=== PATIENT | male | born 1950 | race Caucasian/White ===

== ENCOUNTER → 2021-12-08 14:59 | Outpatient (BNVA) | payer BC, SELFPAY | PROVIDERS: PCP Internal Medicine Endocrinology, Diabetes & Metabolism; Visit Provider Hospitalist | DX: J45.909 Unspecified asthma, uncomplicated (principal); J44.9 Chronic obstructive pulmonary disease, unspecified; J98.6 Disorders of diaphragm; G47.33 Obstructive sleep apnea (adult) (pediatric); I48.91 Unspecified atrial fibrillation; R06.00 Dyspnea, unspecified; Z79.899 Other long term (current) drug therapy; Z87.891 Personal history of nicotine dependence | CPT/HCPCS: 94618 ==

== ENCOUNTER 2021-12-29 12:55 | Outpatient (REF) | payer BC, SELFPAY ==
--- NOTE | 2021-12-29 16:06 | PFT_ITS ---
Forced vital capacity 59%, FEV1 38%, FEV1/FVC ratio is 48. [id number] 15% and MVV is 39%. Post bronchodilator therapy, there is a minimal improvement in FEV1 and [id number]. Total lung capacity 64%. Residual volume 73%. Diffusion capacity 49% CONCLUSION: Severe obstructive airway disorder. There may be mild to moderate degree of restrictive disorder. Minimal improvement after bronchodilator therapy is noted. Clinical correlation recommended. MD RADHA Cobb/MODL / [id number]
== END 2021-12-29 12:56 | disposition home or self-care (01) ==
LOC: HO.RESP 12:55
PROVIDERS: PCP Internal Medicine Endocrinology, Diabetes & Metabolism; Visit Provider Hospitalist
DX: J44.9 Chronic obstructive pulmonary disease, unspecified (principal); R06.00 Dyspnea, unspecified
CPT/HCPCS: 94060; 94727; 94729

== ENCOUNTER → 2022-01-19 09:56 | Outpatient (REF) | payer BC, SELFPAY | LOC: HO.SL 09:56 | PROVIDERS: PCP Internal Medicine Endocrinology, Diabetes & Metabolism; Visit Provider Hospitalist | DX: G47.33 Obstructive sleep apnea (adult) (pediatric) (principal) | CPT/HCPCS: 95806 ==

== ENCOUNTER → 2022-05-17 14:19 | Outpatient (BNVA) | payer BC, SELFPAY | PROVIDERS: PCP Internal Medicine Endocrinology, Diabetes & Metabolism; Visit Provider Hospitalist | DX: Z13.89 Encounter for screening for other disorder (principal) ==

== ENCOUNTER → 2022-08-17 14:26 | Outpatient (BNVA) | payer BC, SELFPAY | PROVIDERS: PCP Internal Medicine Endocrinology, Diabetes & Metabolism; Visit Provider Hospitalist | DX: Z13.89 Encounter for screening for other disorder (principal) ==

== ENCOUNTER 2022-12-21 14:39 | Outpatient (AMB) | payer BC, SELFPAY ==
[2022-12-21 14:51] VITALS: PULSE 92; O2SAT 96; BMI 31.5
--- NOTE | 2022-12-21 14:51 | A.OFFVIS_ITS ---
Intake Vital Signs 12/21/22 14:51 Height 6 ft 1 in Weight 239 lb BMI 31.5 Pulse 92 Pulse Source Pulse Oximeter Pulse Oximetry (%) 96 Oxygen Delivery Method Room Air Intake Visit Reasons: COPD School Library Media Specialist Required: No Allergies No Known Allergies Allergy (Verified 12/21/22 14:52) HPI HPI Comments History of Present Illness0 Details The patient is a 72-year-old gentleman with known history of COPD in addition to obstructive sleep apnea and diaphragmatic paresis. apparently the pa ahsan has been having worsening shortness of breath. He recently went to [place] and while he was there he was developing severe dyspnea. Patient could barely walk 1 block. He does have a rescue inhaler that he uses with partial improvement of his symptoms. He does not have any maintenance inhalers at this time. He does state that he did follow-up with thoracic surgery. The did evaluate his elevated hemidiaphragm and repeated this sniff study. Indeed he did have some paradoxical movement of the left hemidiaphragm. it was decided not to pursue plication of the diaphragm after the patient understood the risk and benefits of the procedure. The patient states that he has not been using the CPAP. He had been using before but then he stopped using it because he can not tolerate the pressures. At this time he is no longer getting supplies. Will go ahead and have him bring his machine to see if we can adjust the machine. The patient understands that he needs to uses in order to try to provide positive pressure to his lung to try to inflated in view of the nonfunctional diaphragm in addition to the fact that he has underlying cardiac arrhythmias. We did go for 6 minutes walk test the patient was very short of breath with dyspnea score of 8/10. During the ambulation is pulse ox maintain around 96% although the heart rate was already elevated in the 130s. The patient quickly became short of breath and his heart rate increased above 115. I did call his credit and loan collections supervisor and spoke to the credit and loan collections supervisor covering. the plan is for the patient to increase his metoprolol from 25-50 mg because his blood pressure is stable. also, he will have an appointment with Cardiology where he will have a Holter monitor and further adjust his medications accordingly. 12/31/2021 the patient is here for a pulmonary follow-up visit. He seems to be tolerating the higher dose metoprolol. Continues to have significant dyspnea with minimal activity. Moderate severity. The Spiriva inhaler has been helping. Although he still has episodes with shortness of breath. The patient is wondering about a short-acting beta agonist. At this point with the atrial fibrillation and rapid ventricular response I will send Xopenex. We may have to do a prior approval. The patient continues to have significant daytime drowsiness. His Offerman score is elevated 12/24. Needs to have a sleep study in order to get an back acquainted to using his CPAP. The patient has been diagnosed with sleep apnea in the past. The patient understands that treating his underlying sleep apnea will be important in the treatment for the cardiovascular disease. 05/17/2022 the patient is here for a pulmonary follow-up visit. The patient is still struggling with CPAP. Continues to have daytime drowsiness. Even while trying to use some. his Offerman score is still elevated 12/24. We did review his last sleep study Still demonstrating severe sleep apnea and significant hypoxia. The patient needs to be able to tolerate his CPAP due to the significant adverse effects. Specially with his cardiac history. He has been using the nasal pillows. He does complain of a dry mouth. I did provide him with an F 30 mask with the hope that he can tolerated better. He did okay although it did start leaking at higher pressure. Therefore he will have to try to adjusted at home. In any case will go ahead and request for him to get [facility] in order for him to get supplies. I do believe that he needs to be set up with the [facility] with them to see which is the best mask for him to use with CPAP. His current settings are 6-8. Will continue on that setting while he tries the new mask he probably would need higher pressure if able. He does have facial hair which also makes it difficult to get a good seal. However, at this point the patient would like to stay on the Spiriva. In addition to that we talked about the importance of pulmonary rehab. The patient understands that the more deconditioning gets the more short of breath he is going to become. He is not interested in in person rehab. I did give him information about underlying pulmonary rehab that he can look into. 08/17/2022 The patient is here for a pulmonary follow up visit. The patient also complains of dyspnea on exertion. Moderate in severity. He has been on Spiriva. We did look at his previous breathing studies and he does have severe COPD with moderate to severe diffusion impairment. The patient will benefit from optimizing his respiratory therapy. We did talk about some options. The patient is willing to try Trelegy at this time. The patient is still struggling with CPAP. Continues to have daytime drowsiness. Even while trying to use some. his Offerman score is still elevated 04/10. We did review his last sleep study Still demonstrating severe sleep apnea and significant hypoxia. The patient needs to jacque his CPAP. He does have a hard time sleeping. He will get a wedge pillow and will try to use his cpap machine. If he needs a sleep aid, he will call the office. 12/21/2022 patient is here for pulmonary follow-up visit. She is still struggling with shortness of breath. Moderate severity. Was prescribed Trelegy inhaler but he only used it a few days and then he stopped it. He went back to using Spiriva he is not sure if the inhalers are going to help because in his view his breathing is primarily due to diaphragmatic paralysis. I did review his PFTs. Explained to him that he does have severe COPD in addition to the restrictive process. The patient did have a good response to bronchodilators and will work commend him starting the Trelegy in using it regularly. In addition to that the patient has not been very active. We talked about the importance of staying active and exercising and building up respiratory muscle capacity. Therefore we will repeat his PFTs and refer him back to pulmonary rehabilitation. He was referred before but he only went to the introductory class and then did not follow through. At this point the patient understands that in view of his worsening condition he needs to start participating. He is also trying to lose weight. He started some lifestyle changes also at this time. Also, the patient is not using his CPAP regularly. We did talk about the importance of using the CPAP specially with his diaphragm. Also with underlying obstructive sleep apnea. He will start using it more regularly. [facility] Medical History (Updated 12/09/21 @ 00:00 by Addiosn Jesus MD) COPD (chronic obstructive pulmonary disease) Diaphragmatic paresis Dyspnea ALLY (obstructive sleep apnea) Social History (Updated 12/31/21 @ 14:09 by MARLENE Jauregui) Patient Tobacco Use Status: Former Tobacco user Tobacco use type: Cigarette Years Smoked: 10 years Review of Systems Const Reports daytime sleepiness, Reports difficulty sleeping, Reports fatigue, Denies fever(s) and Reports stops breathing during sleep Eyes Denies change in vision ENT Denies change in voice Card Reports dyspnea on exertion and Reports orthopnea Resp Reports cough, Denies hemoptysis and Reports dyspnea on exertion GI Reports no additional complaints Musc Reports no additional complaints Skin/Breast Denies rash Neuro Reports no additional complaints Endo Reports fatigue Physical Exam Vital Signs: Last Vital Signs Pulse 92 12/21/22 14:51 Pulse Ox 96 12/21/22 14:51 Oxygen Delivery Method Room Air 12/21/22 14:51 BMI result Body Mass Index 31.5 Const General: comfortable HEENT Head: Yes normal to inspection Eyes General: appearance normal, both eyes and all related structures Neck Neck: Yes supple Chest Chest palpation & inspection: normal inspection of the chest Resp Effort & Inspection: decreased respiratory effort Auscultation: no rales, no rhonchi, no wheezes and diminished lung sounds Cardio Rate: tachycardic Rhythm: regular rhythm Heart sounds: S1 normal heart sound present and S2 normal heart sound present GI Inspection: Yes normal to inspection Skin General skin exam: no rashes or lesions noted Extrem General: Yes no clubbing, cyanosis or edema Assessment & Plan Assessment & Plan (1) COPD (chronic obstructive pulmonary disease): Code(s): J44.9 - Chronic obstructive pulmonary disease, unspecified (2) Diaphragmatic paresis: Code(s): J98.6 - Disorders of diaphragm (3) ALLY (obstructive sleep apnea): Code(s): G47.33 - Obstructive sleep apnea (adult) (pediatric) (4) Atrial fibrillation with RVR: Code(s): I48.91 - Unspecified atrial fibrillation (5) Dyspnea: Code(s): R06.00 - Dyspnea, unspecified Plan stop Spiriva restart Trellegy 100 wedge pillow restart CPAP continue xopenex as needed (can not tolerate albuterol due to afib and high HR) PFTs in person pulmonary rehab follow-up 6 months Orders: Orders PFT pulmonary function test Today J44.9 - Chronic obstructive pulmonary diseas e, unspecified, J98.6 - Disorders of diaphragm, R06.00 - Dyspnea, unspecified Pulmonary Rehab Today J44.9 - Chronic obstructive pulmonary disease, unspecified, J98.6 - Disorders of diaphragm, R06.00 - Dyspnea, unspecified Coding Level of Care Code Est Pt Level 4 (40045) Diagnoses COPD (chronic obstructive pulmonary disease) J44.9 Diaphragmatic paresis J98.6 ALLY (obstructive sleep apnea) G47.33 Atrial fibrillation with RVR I48.91 Dyspnea R06.00 Time Spent (min) 18
== END 2022-12-21 15:32 | disposition home or self-care (01) ==
PROVIDERS: PCP Internal Medicine Endocrinology, Diabetes & Metabolism; Visit Provider Hospitalist
DX: J44.9 Chronic obstructive pulmonary disease, unspecified (principal); J98.6 Disorders of diaphragm; G47.33 Obstructive sleep apnea (adult) (pediatric); I48.91 Unspecified atrial fibrillation; R06.00 Dyspnea, unspecified
CPT/HCPCS: 99214

== ENCOUNTER → 2022-12-21 14:39 | Outpatient (BNVA) | payer BC, SELFPAY | PROVIDERS: PCP Internal Medicine Endocrinology, Diabetes & Metabolism; Visit Provider Hospitalist | DX: J44.9 Chronic obstructive pulmonary disease, unspecified (principal) ==

== ENCOUNTER 2023-02-07 13:44 | Outpatient (REF) | payer BC, SELFPAY ==
--- NOTE | 2023-02-07 15:33 | PFT_ITS ---
INDICATION: COPD. SPIROMETRY: FEV1 to FVC of 48% with an FEV1 of 1.42 L, which is 113% predicted and an FVC of 2.99 L, which is 101% predicted. There was a significant response to bronchodilators noted. The maximum voluntary ventilation 122% predicted. LUNG VOLUMES: Total lung capacity 60% predicted with an expiratory reserve volume 80% predicted. DIFFUSION CAPACITY: DLCO of 61% predicted. It does correct to 98% when correcting for the alveolar volume. COMPARISONS: None. INTERPRETATION: There is an obstructive ventilatory defect, consistent with mild COPD. There is a significant response to bronchodilators noted. Severe decrease in the maximum voluntary ventilation, secondary to likely deconditioning. Although cannot rule out neuromuscular conditions. The patient also has a restrictive ventilatory defect, consistent with moderate restrictive lung disease impart due to an elevated BMI, although parenchymal lung conditions and/or neuromuscular conditions cannot be ruled out. The patient also has a mild diffusion impairment. It does correct to normal when correcting for the alveolar volume. Clinical correlation warranted. MD JOHN Arriaza/LISS / [id number]
== END 2023-02-07 13:45 | disposition home or self-care (01) ==
LOC: HO.RESP 13:44
PROVIDERS: PCP Internal Medicine Endocrinology, Diabetes & Metabolism; Visit Provider Hospitalist
DX: J44.9 Chronic obstructive pulmonary disease, unspecified (principal); J98.6 Disorders of diaphragm; R06.00 Dyspnea, unspecified
CPT/HCPCS: 94010; 94727; 94729

== ENCOUNTER → 2023-02-07 15:33 | Outpatient (BNV) | payer BC, SELFPAY | PROVIDERS: PCP Internal Medicine Endocrinology, Diabetes & Metabolism; Visit Provider Hospitalist | DX: J44.9 Chronic obstructive pulmonary disease, unspecified (principal) | CPT/HCPCS: 94060; 94727; 94729 ==

== ENCOUNTER 2023-02-08 | Outpatient (REF) | payer BC, SELFPAY ==
--- NOTE | ~2023-02-08 | XR_ITS ---
EXAMINATION: XR CHEST CLINICAL INFORMATION: Dyspnea COMPARISON: None available. TECHNIQUE: 2 views of the chest were obtained. FINDINGS: Asymmetric elevation of the left lung base with subjacent air-filled loops of bowel, obscuring cardiac border. Patient rotation further limits evaluation of the cardiomediastinal silhouette. Bilateral costophrenic angle blunting may represent small bilateral pleural effusions or pleural thickening. There is no gross pneumothorax. Degenerative changes in the thoracic spine. Bibasilar streaky opacities may represent atelectasis/scar and/or pneumonia. XR/XR chest 2V IMPRESSION: Asymmetric elevation of the left lung base with subjacent air-filled loops of bowel, obscuring cardiac border. Bilateral costophrenic angle blunting may represent small bilateral pleural effusions or pleural thickening. Bibasilar streaky opacities may represent atelectasis/scar and/or pneumonia. Direct correlation with prior images is recommended and if prior images are provided, an addendum will be dictated. In the absence of prior images, CT scan or MRI should be considered for further evaluation. This study was presented today 02/09/2023 at 6:54 AM for interpretation. PSA staff will provide results to referring provider at this time.
== END 2023-02-08 13:27 | disposition home or self-care (01) ==
LOC: HO.XRAY
PROVIDERS: PCP Internal Medicine Endocrinology, Diabetes & Metabolism; Referring Provider Thoracic Surgery (Cardiothoracic Vascular Surgery); Visit Provider Hospitalist
DX: J44.9 Chronic obstructive pulmonary disease, unspecified (principal); R06.00 Dyspnea, unspecified
CPT/HCPCS: 71046

== ENCOUNTER 2023-03-22 13:30 | Outpatient (RCR) | payer BC, SELFPAY ==
[2023-01-12 13:15] VITALS: PULSE 91
== END 2023-06-17 07:18 | disposition home or self-care (01) ==
LOC: HO.PR 13:30
PROVIDERS: PCP Internal Medicine Endocrinology, Diabetes & Metabolism; Visit Provider Hospitalist
DX: J44.9 Chronic obstructive pulmonary disease, unspecified (principal); J98.6 Disorders of diaphragm; R06.00 Dyspnea, unspecified
CPT/HCPCS: 94625; 94761; 99215

== ENCOUNTER 2023-04-21 14:46 | Outpatient (AMB) | payer BC, SELFPAY ==
[2023-04-21 14:56] VITALS: PULSE 89; O2SAT 94; BMI 30.9
--- NOTE | 2023-04-21 14:56 | MHC.OFFVIS ---
Intake Vital Signs 04/21/23 14:56 Height 6 ft 1 in Weight 234 lb BMI 30.9 Pulse 89 Pulse Source Pulse Oximeter Pulse Oximetry (%) 94 Oxygen Delivery Method Room Air Intake Visit Reasons: COPD Blade Aligner Required: No Allergies No Known Allergies Allergy (Verified 04/21/23 14:57) HPI HPI Comments History of Present Illness Details The patient is a 72-year-old gentleman with known history of COPD in addition to obstructive sleep apnea and diaphragmatic paresis. apparently the patient has been having worsening shortness of breath. He recently went to [place] and while he was there he was developing severe dyspnea. Patient could barely walk 1 block. He does have a rescue inhaler that he uses with partial improvement of his symptoms. He does not have any maintenance inhalers at this time. He does state that he did follow-up with thoracic surgery. The did evaluate his elevated hemidiaphragm and repeated this sniff study. Indeed he did have some paradoxical movement of the left hemidiaphragm. it was decided not to pursue plication of the diaphragm after the patient understood the risk and benefits of the procedure. The patient states that he has not been using the CPAP. He had been using before but then he stopped using it because he can not tolerate the pressures. At this time he is no longer getting supplies. Will go ahead and have him bring his machine to see if we can adjust the machine. The patient understands that he needs to uses in order to try to provide positive pressure to his lung to try to inflated in view of the nonfunctional diaphragm in addition to the fact that he has underlying cardiac arrhythmias. We did go for 6 minutes walk test the patient was very short of breath with dyspnea score of 8/10. During the ambulation is pulse ox maintain around 96% although the heart rate was already elevated in the 130s. The patient quickly became short of breath and his heart rate increased above 115. I did call his sales representative womens health and spoke to the sales representative womens health covering. the plan is for the patient to increase his metoprolol from 25-50 mg because his blood pressure is stable. also, he will have an appointment with Cardiology where he will have a Holter monitor and further adjust his medications accordingly. 12/31/2021 the patient is here for a pulmonary follow-up visit. He seems to be tolerating the higher dose metoprolol. Continues to have significant dyspnea with minimal activity. Moderate severity. The Spiriva inhaler has been helping. Although he still has episodes with shortness of breath. The patient is wondering about a short-acting beta agonist. At this point with the atrial fibrillation and rapid ventricular response I will send Xopenex. We may have to do a prior approval. The patient continues to have significant daytime drowsiness. His Clermont score is elevated 12/24. Needs to have a sleep study in order to get an back acquainted to using his CPAP. The patient has been diagnosed with sleep apnea in the past. The patient understands that treating his underlying sleep apnea will be important in the treatment for the cardiovascular disease. 05/17/2022 the patient is here for a pulmonary follow-up visit. The patient is still struggling with CPAP. Continues to have daytime drowsiness. Even while trying to use some. his Clermont score is still elevated 12/24. We did review his last sleep study Still demonstrating severe sleep apnea and significant hypoxia. The patient needs to be able to tolerate his CPAP due to the significant adverse effects. Specially with his cardiac history. He has been using the nasal pillows. He does complain of a dry mouth. I did provide him with an F 30 mask with the hope that he can tolerated better. He did okay although it did start leaking at higher pressure. Therefore he will have to try to adjusted at home. In any case will go ahead and request for him to get restart lives with the [employer] in order for him to get supplies. I do believe that he needs to be set up with the [facility] with them to see which is the best mask for him to use with CPAP. His current settings are 6-8. Will continue on that setting while he tries the new mask he probably would need higher pressure if able. He does have facial hair which also makes it difficult to get a good seal. However, at this point the patient would like to stay on the Spiriva. In addition to that we talked about the importance of pulmonary rehab. The patient understands that the more deconditioning gets the more short of breath he is going to become. He is not interested in in person rehab. I did give him information about underlying pulmonary rehab that he can look into. 08/17/2022 The patient is here for a pulmonary follow up visit. The patient also complains of dyspnea on exertion. Moderate in severity. He has been on Spiriva. We did look at his previous breathing studies and he does have severe COPD with moderate to severe diffusion impairment. The patient will benefit from optimizing his respiratory therapy. We did talk about some options. The patient is willing to try Trelegy at this time. The patient is still struggling with CPAP. Continues to have daytime drowsiness. Even while trying to use some. his Clermont score is still elevated 04/10. We did review his last sleep study Still demonstrating severe sleep apnea and significant hypoxia. The patient needs to jacque his CPAP. He does have a hard time sleeping. He will get a wedge pillow and will try to use his cpap machine. If he needs a sleep aid, he will call the office. 12/21/2022 patient is here for pulmonary follow-up visit. She is still struggling with shortness of breath. Moderate severity. Was prescribed Trelegy inhaler but he only used it a few days and then he stopped it. He went back to using Spiriva he is not sure if the inhalers are going to help because in his view his breathing is primarily due to diaphragmatic paralysis. I did review his PFTs. Explained to him that he does have severe COPD in addition to the restrictive process. The patient did have a good response to bronchodilators and will work commend him starting the Trelegy in using it regularly. In addition to that the patient has not been very active. We talked about the importance of staying active and exercising and building up respiratory muscle capacity. Therefore we will repeat his PFTs and refer him back to pulmonary rehabilitation. He was referred before but he only went to the introductory class and then did not follow through. At this point the patient understands that in view of his worsening condition he needs to start participating. He is also trying to lose weight. He started some lifestyle changes also at this time. Also, the patient is not using his CPAP regularly. We did talk about the importance of using the CPAP specially with his diaphragm. Also with underlying obstructive sleep apnea. He will start using it more regularly. 04/21/2023 the patient is here for a pulmonary follow-up visit. The patient overall has been doing well. He recently had COVID-19. Did not really affect his breathing. However he stopped using his Trelegy for a an unknown reason. He has not gone back to using it. He understands that he does have significant obstruction. We did review his PFTs. He does have severe COPD. the patient also has an elevated diaphragm resulting in worsening respiratory symptoms. He is does not daytime drowsiness. In view of his COPD will go ahead and perform an overnight oximetry to see if he has any nocturnal hypoxia. The patient is participating the pulmonary rehabilitation. He is finding this helpful. Otherwise patient is without any other complaints. Will plan to follow-up sometime in the fall of 2023. if any new issues arise the patient is to call the office for an earlier assessment. [facility] Medical History (Updated 04/21/23 @ 21:42 by Addison Jesus MD) Dyspnea ALLY (obstructive sleep apnea) Diaphragmatic paresis COPD (chronic obstructive pulmonary disease) Social History (Updated 12/31/21 @ 14:09 by MARLENE Jauregui) Household Members: Spouse Household Members Other:: Patient Tobacco Use Status: Former Tobacco user Tobacco use type: Cigarette Years Smoked: 9 Second Hand Smoke Exposure: Yes (as a child) Review of Systems Const Reports daytime sleepiness, Reports difficulty sleeping, Reports fatigue and Denies fever(s) Eyes Denies change in vision ENT Denies change in voice Card Reports dyspnea on exertion and Reports orthopnea Resp Reports cough, Denies hemoptysis and Reports dyspnea on exertion GI Reports no additional complaints Musc Reports no additional complaints Skin/Breast Denies rash Neuro Reports no additional complaints Endo Reports fatigue Physical Exam Vital Signs: Last Vital Signs Pulse 89 04/21/23 14:56 Pulse Ox 94 04/21/23 14:56 Oxygen Delivery Method Room Air 04/21/23 14:56 BMI result Body Mass Index 30.9 Const General: comfortable HEENT Head: Yes normal to inspection Eyes General: appearance normal, both eyes and all related structures Neck Neck: Yes supple Chest Chest palpation & inspection: normal inspection of the chest Resp Effort & Inspection: normal respiratory effort Auscultation: no rales, no rhonchi, no wheezes and diminished lung sounds Cardio Rate: tachycardic Rhythm: regular rhythm Heart sounds: S1 normal heart sound present and S2 normal heart sound present GI Inspection: Yes normal to inspection Skin General skin exam: no rashes or lesions noted Extrem General: Yes no clubbing, cyanosis or edema Assessment & Plan Assessment & Plan (1) COPD (chronic obstructive pulmonary disease): Code(s): J44.9 - Chronic obstructive pulmonary disease, unspecified Qualifiers: COPD type: chronic bronchitis Chronic bronchitis type: simple Qualified Code(s): J41.0 - Simple chronic bronchitis (2) Diaphragmatic paresis: Code(s): J98.6 - Disorders of diaphragm (3) ALLY (obstructive sleep apnea): Code(s): G47.33 - Obstructive sleep apnea (adult) (pediatric) (4) Atrial fibrillation with RVR: Code(s): I48.91 - Unspecified atrial fibrillation (5) Dyspnea: Code(s): R06.00 - Dyspnea, unspecified Qualifiers: Dyspnea type: dyspnea on exertion Qualified Code(s): R06.09 - Other forms of dyspnea Plan stop Spiriva restart Trellegy 100 wedge pillow overnight oximetry on RA continue xopenex as needed (can not tolerate albuterol due to afib and high HR) continue in person pulmonary rehab follow-up 8-10 months Orders: Orders Overnight Pulse Oximetry Today J44.9 - Chronic obstructive pulmonary disease, unspecified Coding Level of Care Code Est Pt Level 4 (98773) Diagnoses Simple chronic bronchitis J41.0 COPD type: chronic bronchitis Chronic bronchitis type: simple Diaphragmatic paresis J98.6 ALLY (obstructive sleep apnea) G47.33 Atrial fibrillation with RVR I48.91 Dyspnea on exertion R06.09 Dyspnea type: dyspnea on exertion Time Spent (min) 18
== END 2023-04-21 15:20 | disposition home or self-care (01) ==
PROVIDERS: PCP Internal Medicine Endocrinology, Diabetes & Metabolism; Visit Provider Hospitalist
DX: J41.0 Simple chronic bronchitis (principal); J98.6 Disorders of diaphragm; G47.33 Obstructive sleep apnea (adult) (pediatric); I48.91 Unspecified atrial fibrillation; R06.09 Other forms of dyspnea
CPT/HCPCS: 99214

== ENCOUNTER → 2023-04-21 14:46 | Outpatient (BNVA) | payer BC, SELFPAY | PROVIDERS: PCP Internal Medicine Endocrinology, Diabetes & Metabolism; Visit Provider Hospitalist | DX: J44.9 Chronic obstructive pulmonary disease, unspecified (principal); J98.6 Disorders of diaphragm; R06.00 Dyspnea, unspecified ==

== ENCOUNTER 2023-12-27 14:21 | Outpatient (AMB) | payer BC, SELFPAY ==
--- NOTE | 2023-12-27 14:30 | A.OFFVIS_ITS ---
Vital Signs 12/27/23 14:31 Height 6 ft 1 in Weight 222 lb 10.67 oz BMI 29.4 BP 128/70 Blood Pressure Location Rt brachial Position Sitting Pulse 90 Pulse Source Pulse Oximeter Pulse Oximetry (%) 99 Oxygen Delivery Method Room Air Intake Visit Reasons: COPD Allergies No Known Allergies Allergy (Verified 12/27/23 14:33) HPI Comments Details: The patient is a 73-year-old gentleman with known history of COPD in addition to obstructive sleep apnea and diaphragmatic paresis. apparently the patient has been having worsening shortness of breath. He recently went to [place] and while he was there he was developing severe dyspnea. Patient could barely walk 1 block. He does have a rescue inhaler that he uses with partial improvement of his symptoms. He does not have any maintenance inhalers at this time. He does state that he did follow-up with thoracic surgery. The did evaluate his elevated hemidiaphragm and repeated this sniff study. Indeed he did have some paradoxical movement of the left hemidiaphragm. it was decided not to pursue plication of the diaphragm after the patient understood the risk and benefits of the procedure. The patient states that he has not been using the CPAP. He had been using before but then he stopped using it because he can not tolerate the pressures. At this time he is no longer getting supplies. Will go ahead and have him bring his machine to see if we can adjust the machine. The patient understands that he needs to uses in order to try to provide positive pressure to his lung to try to inflated in view of the nonfunctional diaphragm in addition to the fact that he has underlying cardiac arrhythmias. We did go for 6 minutes walk test the patient was very short of breath with dyspnea score of 8/10. During the ambulation is pulse ox maintain around 96% although the heart rate was already elevated in the 130s. The patient quickly became short of breath and his heart rate increased above 115. I did call his animal care attendant and spoke to the animal care attendant covering. the plan is for the patient to increase his metoprolol from 25-50 mg because his blood pressure is stable. also, he will have an appointment with Cardiology where he will have a Holter monitor and further adjust his medications accordingly. 12/31/2021 the patient is here for a pulmonary follow-up visit. He seems to be tolerating the higher dose metoprolol. Continues to have significant dyspnea with minimal activity. Moderate severity. The Spiriva inhaler has been helping. Although he still has episodes with shortness of breath. The patient is wondering about a short-acting beta agonist. At this point with the atrial fibrillation and rapid ventricular response I will send Xopenex. We may have to do a prior approval. The patient continues to have significant daytime drowsiness. His [employer] score is elevated 12/24. Needs to have a sleep study in order to get an back acquainted to using his CPAP. The patient has been diagnosed with sleep apnea in the past. The patient understands that treating his underlying sleep apnea will be important in the treatment for the cardiovascular disease. 05/17/2022 the patient is here for a pulmonary follow-up visit. The patient is still struggling with CPAP. Continues to have daytime drowsiness. Even while trying to use some. his [employer] score is still elevated 12/24. We did review his last sleep study Still demonstrating severe sleep apnea and significant hypoxia. The patient needs to be able to tolerate his CPAP due to the significant adverse effects. Specially with his cardiac history. He has been using the nasal pillows. He does complain of a dry mouth. I did provide him with an F 30 mask with the hope that he can tolerated better. He did okay although it did start leaking at higher pressure. Therefore he will have to try to adjusted at home. In any case will go ahead and request for him to get restart lives with the [facility], [facility] in order for him to get supplies. I do believe that he needs to be set up with the [facility] with them to see which is the best mask for him to use with CPAP. His current settings are 6-8. Will continue on that setting while he tries the new mask he probably would need higher pressure if able. He does have facial hair which also makes it difficult to get a good seal. However, at this point the patient would like to stay on the Spiriva. In addition to that we talked about the importance of pulmonary rehab. The patient understands that the more deconditioning gets the more short of breath he is going to become. He is not interested in in person rehab. I did give him information about underlying pulmonary rehab that he can look into. 08/17/2022 The patient is here for a pulmonary follow up visit. The patient also complains of dyspnea on exertion. Moderate in severity. He has been on Spiriva. We did look at his previous breathing studies and he does have severe COPD with moderate to severe diffusion impairment. The patient will benefit from optimizing his respiratory therapy. We did talk about some options. The patient is willing to try Trelegy at this time. The patient is still struggling with CPAP. Continues to have daytime drowsiness. Even while trying to use some. his [employer] score is still elevated 04/10. We did review his last sleep study Still demonstrating severe sleep apnea and significant hypoxia. The patient needs to jacque his CPAP. He does have a hard time sleeping. He will get a wedge pillow and will try to use his cpap machine. If he needs a sleep aid, he will call the office. 12/21/2022 patient is here for pulmonary follow-up visit. She is still struggling with shortness of breath. Moderate severity. Was prescribed Trelegy inhaler but he only used it a few days and then he stopped it. He went back to using Spiriva he is not sure if the inhalers are going to help because in his view his breathing is primarily due to diaphragmatic paralysis. I did review his PFTs. Explained to him that he does have severe COPD in addition to the restrictive process. The patient did have a good response to bronchodilators and will work commend him starting the Trelegy in using it regularly. In addition to that the patient has not been very active. We talked about the importance of staying active and exercising and building up respiratory muscle capacity. Therefore we will repeat his PFTs and refer him back to pulmonary rehabilitation. He was referred before but he only went to the introductory class and then did not follow through. At this point the patient understands that in view of his worsening condition he needs to start participating. He is also trying to lose weight. He started some lifestyle changes also at this time. Also, the patient is not using his CPAP regularly. We did talk about the importance of using the CPAP specially with his diaphragm. Also with underlying obstructive sleep apnea. He will start using it more regularly. 04/21/2023 the patient is here for a pulmonary follow-up visit. The patient overall has been doing well. He recently had COVID-19. Did not really affect his breathing. However he stopped using his Trelegy for a an unknown reason. He has not gone back to using it. He understands that he does have significant obstruction. We did review his PFTs. He does have severe COPD. the patient also has an elevated diaphragm resulting in worsening respiratory symptoms. He is does not daytime drowsiness. In view of his COPD will go ahead and perform an overnight oximetry to see if he has any nocturnal hypoxia. The patient is participating the pulmonary rehabilitation. He is finding this helpful. Otherwise patient is without any other complaints. Will plan to follow-up sometime in the fall. if any new issues arise the patient is to call the office for an earlier assessment. 12/27/2023 the patient is here for pulmonary follow-up visit. He has multiple constitutional complaints including dizziness and shortness of breath and fatigue. He has been using the oxygen at nighttime. Did qualify with the ove rnight oximetry spending more than 30 minutes below 88%. The oxygen therapy has been affecting beneficial. Although, it is very loud for him he has a hard time sleeping with the son the concentrator. He is looking at other potential alternatives. We did look at different options. I also called the [facility] to see if they can provide him with a different option although is not clear at this time. They will going to reach out back to the office. In meantime he does uses respiratory therapy as prescribed. Does not seem like the dizziness is vertiginous. It may be related to his cardiovascular issues since his heart rate is elevated. He also did not take the medications that he is opposed to taking the morning as he had from gotten in therefore may have some degree of withdrawal from medication effect. Therefore, multifactorial this time. But I do not believe that the dizziness is from evidence of hypoxia. 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 That can also cause him to have underlying shortness of breath even with normal oxygen based on the work of breathing. Will go ahead and request a repeat x-ray just to assess the area her otherwise her continue with the current respiratory therapy. I did recommend he continue with pulmonary rehabilitation or do it on his own. Will follow-up in the spring. if the patient has an issues he will call prior. Also to note he did have about her bronchitis and COPD exacerbation with summer. He did require antibiotics and some prednisone. [facility] Medical History (Updated 04/21/23 @ 21:42 by Addison Jesus MD) Dyspnea ALLY (obstructive sleep apnea) Diaphragmatic paresis COPD (chronic obstructive pulmonary disease) Social History (Updated 12/31/21 @ 14:09 by MARLENE Jauregui) Household Members: Spouse Household Members Other:: Patient Tobacco Use Status: Former Tobacco user Tobacco use type: Cigarette Years Smoked: 9 Second Hand Smoke Exposure: Yes (as a child) Review of Systems Const Reports daytime sleepiness, Reports difficulty sleeping, Reports fatigue and Denies fever(s) Eyes Denies change in vision ENT Denies change in voice and Reports dizziness Card Reports dyspnea on exertion and Reports orthopnea Resp Reports cough, Denies hemoptysis and Reports dyspnea on exertion GI Reports no additional complaints Musc Reports no additional complaints Skin/Breast Denies rash Neuro Reports no additional complaints and Reports dizziness Endo Reports fatigue Physical Exam Vital Signs: Last Vital Signs Pulse 90 12/27/23 14:31 BP 128/70 12/27/23 14:31 Pulse Ox 99 12/27/23 14:31 Oxygen Delivery Method Room Air 12/27/23 14:31 BMI result Body Mass Index 29.4 Const General: comfortable HEENT Head: Yes normal to inspection Eyes General: appearance normal, both eyes and all related structures Neck Neck: Yes supple Chest Chest palpation & inspection: normal inspection of the chest Resp Effort & Inspection: normal respiratory effort Auscultation: no rales, no rhonchi, no wheezes and diminished lung sounds Cardio Rate: tachycardic Rhythm: regular rhythm Heart sounds: S1 normal heart sound present and S2 normal heart sound present GI Inspection: Yes normal to inspection Skin General skin exam: no rashes or lesions noted Extrem General: Yes no clubbing, cyanosis or edema Assessment & Plan Assessment & Plan (1) COPD (chronic obstructive pulmonary disease): Code(s): J44.9 - Chronic obstructive pulmonary disease, unspecified Category: Medical Qualifiers: COPD type: chronic bronchitis Chronic bronchitis type: simple Qualified Code(s): J41.0 - Simple chronic bronchitis (2) Diaphragmatic paresis: Code(s): J98.6 - Disorders of diaphragm Category: Medical (3) ALLY (obstructive sleep apnea): Code(s): G47.33 - Obstructive sleep apnea (adult) (pediatric) Category: Medical (4) Atrial fibrillation with RVR: Code(s): I48.91 - Unspecified atrial fibrillation Category: Medical (5) Dyspnea: Code(s): R06.00 - Dyspnea, unspecified Category: Medical Qualifiers: Dyspnea type: dyspnea on exertion Qualified Code(s): R06.09 - Other forms of dyspnea Plan continue Trelegy 100 wedge pillow continue oxygen supplementation 2L/min while sleeping continue xopenex as needed (can not tolerate albuterol due to afib and high HR) CXR follow-up 6-8 months Orders: Orders XR chest 2V Today R06.09 - Other forms of dyspnea Coding Level of Care Code Est Pt Level 4 (97790) Complex EM visit Add On G2211 Diagnoses Simple chronic bronchitis J41.0 COPD type: chronic bronchitis Chronic bronchitis type: simple Diaphragmatic paresis J98.6 ALLY (obstructive sleep apnea) G47.33 Atrial fibrillation with RVR I48.91 Dyspnea on exertion R06.09 Dyspnea type: dyspnea on exertion Time Spent (min) 17
[2023-12-27 14:31] VITALS: BP 128/70; PULSE 90; O2SAT 99; BMI 29.4
== END 2023-12-27 15:05 | disposition home or self-care (01) ==
PROVIDERS: PCP Internal Medicine Endocrinology, Diabetes & Metabolism; Visit Provider Hospitalist
DX: J41.0 Simple chronic bronchitis (principal); J98.6 Disorders of diaphragm; G47.33 Obstructive sleep apnea (adult) (pediatric); I48.91 Unspecified atrial fibrillation; R06.09 Other forms of dyspnea
CPT/HCPCS: 99214

== ENCOUNTER → 2023-12-27 14:21 | Outpatient (BNVA) | payer BC, SELFPAY | PROVIDERS: PCP Internal Medicine Endocrinology, Diabetes & Metabolism; Visit Provider Hospitalist | DX: J44.9 Chronic obstructive pulmonary disease, unspecified (principal); J98.6 Disorders of diaphragm; R06.00 Dyspnea, unspecified ==

== ENCOUNTER 2024-06-25 14:08 | Outpatient (REF) | payer BC, SELFPAY ==
--- NOTE | ~2024-06-25 | XR_ITS ---
EXAMINATION: XR CHEST CLINICAL INFORMATION: R06.09 - Other forms of dyspnea COMPARISON: 02/08/2023. TECHNIQUE: 2 views of the chest were obtained. FINDINGS: Chronically elevated left hemidiaphragm, similar to the prior exam. Blunting of the right costophrenic angle, also stable from the prior exam. Mild dextro positioning of the heart, stable. Borderline cardiac enlargement. Mild prominence of the aortic root, possibly projectional. This is also unchanged. Aortic mural calcification. Mild volume loss right lung. Left base linear atelectasis, stable. Lungs otherwise clear. Mild spinal degenerative changes. Soft tissues appear normal. XR/XR chest 2V IMPRESSION: 1. Chronic basilar parenchymal changes and elevated left hemidiaphragm, stable from 02/08/2023. No active superimposed disease identified. See above. Electronically signed by: Alberto Renee MD 06/26/2024 10:51 AM EDT
--- OUTSIDE RECORDS SUMMARY | 2024-06-25 16:11 | XMS_ITS | Clinical Summary ---
Author Organization [address] [place] [address] Address [address] [place] [address] Phone Care Team Providers Care Town Marshal Name Role Phone Cleve Pritchett MD Primary Care Provider [phone] Allergies No known active allergies Medications ALPRAZolam (XANAX) 0.5 mg tablet Take 0.5 mg by mouth. 1-3 Times a day/prn Active cholecalciferol (VITAMIN D-3) 25 mcg (1,000 unit) tablet Take by mouth daily. Active LEVALBUTEROL HCL INHL Inhale 2 Puffs into the lungs 2 times daily. Active rivaroxaban (XARELTO) 20 mg tablet Take 20 mg by mouth daily. Active tiotropium (Spiriva Respimat) 2.5 mcg/actuation inhalation spray Inhale 2 Puffs into the lungs daily. Active venlafaxine XR (EFFEXOR-XR) 75 mg 24 hr capsule Take 3 capsules (225 mg total) by mouth 1 (one) time each day. Active amiodarone (PACERONE) 200 mg tablet Take 1 tablet (200 mg total) by mouth 1 (one) time each day. amiodarone 400 daily for 2 weeks, then 200 daily thereafter Active Active Problems Problem Noted Date Diagnosed Date Typical atrial flutter 10/05/2021 Cardiomyopathy 07/22/2020 Overview (03/19/2024): alcoholic cardiomyopathy with mild LV dysfunction January 2024 - normalized/preserved LV systolic function LVEF 55-60% Assessment & Plan (03/19/2024 2:16 PM EST): Echocardiogram from January 2024 showed normalized LV systolic function. Previously thought to be reduced due to alcoholic cardiomyopathy and possibly arrhythmogenic. He is maintaining sinus rhythm. He is compensated on exam. Continue with metoprolol. Due to lightheadedness the patient will be unlikely to tolerate any other medications such as ORION ARB or Arni. Additionally his blood pressure was elevated here in the office but is generally well-controlled in the 120s systolic. Orders: ECG 12 lead Supraventricular tachycardia 07/22/2020 Dysplastic nevus 06/17/2017 Overview (01/19/2024): back Hiatal hernia 06/17/2017 Anxiety 06/15/2017 Paroxysmal atrial fibrillation 06/15/2017 Overview (03/19/2024): status post atrial fibrillation ablation previously on amiodarone Assessment & Plan (03/19/2024 2:16 PM EST): Maintaining sinus rhythm. [id number] is 5 and currently tolerating rivaroxaban. Continue with metoprolol. Erectile dysfunction 06/15/2017 Hyperlipidemia 06/15/2017 Assessment & Plan (03/19/2024 2:16 PM EST): Atorvastatin discontinued for unclear reason. Diet controlled for now. Will reevaluate after next lipid panel. Pulmonary nodule 06/15/2017 COPD (chronic obstructive pulmonary disease) ALLY (obstructive sleep apnea) 05/05/2017 Overview (03/19/2024): [facility] Home Polysomnogram: Date 09/12/2017; AHI 38, Unclassified apneas 0; Obstructive apneas 127; Central apneas 4; Mixed apneas 1; hypopneas 255; average oxygen saturation 93% (lowest 78% with saturations <88% for 5% or more of study) - Obstructive Sleep Apnea - severe; mostly hypopneas with obstructive apneas; with sleep related hypoventilation by 2017 home polysomnogram 2023 - on nocturnal supplemental oxygen and oxygen saturation monitoring with recommendations for daytime CPAP use Assessment & Plan (03/19/2024 2:16 PM EST): Unable to tolerate sleep mask. Continued use of nocturnal supplemental oxygen and daytime use of CPAP periodically. Continued weight loss. Resolved Problems Problem Noted Date Diagnosed Date Resolved Date Heart valve disorder 06/15/2017 024 Encounters Date Type Department Care Team Description 05/25/2024 Telephone [facility] Cardiology [address] [place] [id number] Axel Horowitz MD Atrial Fibrillation 05/17/[address] [place] [address] Axel Horowitz MD low heart rate from Last 3 Months Surgical History Surgery Date Site/Laterality Comments OTHER SURGICAL HISTORY PROCEDURE: ---- OTHER ----; COMMENT: RLL lobectomy stage 1 lung cancer CARDIAC CATHETERIZATION 10/07/2016 PROCEDURE: HISTORICAL CARDIAC CATH; COMMENT: normal coronaries OTHER SURGICAL HISTORY PROCEDURE: HISTORY OTHER; COMMENT: Dysplastic Nevus removal (back) Medical History Medical History Date Comments Atrial fibrillation (CMS/HCC) 06/15/2017 DX :Atrial fibrillation (HCC) Pulmonary nodule 06/15/2017 DX:Pulmonary no dule History of lung cancer 06/15/2017 DX:Histor y of lung cancer; COMMENT: Stage 1 Hyperlipidemia 06/15/2017 DX:Hyperlipidemi a H/O alcoholic cardiomyopathy 06/15/2017 DX: H/O alcoholic cardiomyopathy Anxiety 06/15/2017 DX:Anxiety Heart valve disorder 06/15/2017 DX:Heart va lve disorder; COMMENT: Mild , mild MR Erectile dysfunction 06/15/2017 DX:Erectile dysfunction COPD (chronic obstructive pu lmonary disease) (CMS/HCC) 05/05/2017 DX:COPD (chronic obstructive pulmonary disease) (HCC) ALLY (obstructive sleep apnea) 05/05/2017 DX :ALLY (obstructive sleep apnea) Hiatal hernia 06/17/2017 DX:Hiatal hernia Dysplastic nevus 06/17/2017 DX:Dysplastic n evus; COMMENT: back Family History Medical History Relation Name Comments Lung cancer Father CAD, Alcohol ab use Alcohol abuse Mother HTN, Kidney Di sease, Depression/Anxiety Relation Name Status Comments Father Mother Social History Tobacco Use Types Packs/Day Years Used Date Smoking Tobacco: Former Cigarettes 0.8 17 0 04/18/1975 - 04/18/1992 Smokeless Tobacco: Never Alcohol Use Standard Drinks/Week Comments Yes 7 (1 standard drink = 0.6 oz pur e alcohol) ocasionally Sex and Gender Information Value Date Recorded Sex Assigned at Not on file Legal Sex Male 8:08 AM EST Gender Identity Not on file Sexual Orientation Not on file Obstetrics History Last Filed Vital Signs Vital Sign Reading Time Taken Comments Blood Pressure 150/66 03/19/2024 1:08 PM EST Pulse 89 03/19/2024 1:08 PM EST Temperature - - Respiratory Rate - - Oxygen Saturation 98% 03/19/2024 1:08 PM EST Inhaled Oxygen Concentration - - Weight 105 kg (231 lb) 03/19/2024 1:08 PM EST Height 182.9 cm (6') 02/29/2024 10:58 AM EST Body Mass Index 31.33 02/29/2024 10:58 AM EST Plan of Treatment Health Maintenance Due Date Last Done Comments DTaP,Tdap,and Td Vaccines (1 - Tdap) 10/11/1967 Zoster Vaccines (1 of 2) 10/11/1967 Abdominal Aortic Aneurysm (AAA) Screen 03/21/2022 Cholesterol Screening (Lipid Panel) 03/21/2022 Colorectal Cancer Screening: Colonoscopy 03/21/2022 Depression Screening 03/21/2022 Falls Risk Assessment 03/21/2022 Hepatitis C Screening 03/21/2022 Social Influencers of Health Screening 03/21/2022 Hypertension/CHF/CAD Annual BMP Blood Test 02/29/2024 Pneumococcal Vaccine: 50+ Years Completed 02/06/2021, 01/21/2020, 03/25/2011 RSV Immunization Patients 60+ Years Old Completed 03/26/2023 COVID-19 Vaccine Completed 01/31/2024, , 02/15/2022, Additional history exists Influenza Vaccine Completed 01/31/2024, , 02/15/2022, Additional history exists HIB Vaccines Aged Out No longer eligi ble based on patient's age to complete this topic HPV Vaccines Aged Out No longer eligi ble based on patient's age to complete this topic Hepatitis A Vaccines Aged Out No long er eligible based on patient's age to complete this topic Hepatitis B Vaccines Aged Out No long er eligible based on patient's age to complete this topic IPV Vaccines Aged Out No longer eligi ble based on patient's age to complete this topic MMR Vaccines Aged Out No longer eligi ble based on patient's age to complete this topic Meningococcal ACWY Vaccine Aged Out N o longer eligible based on patient's age to complete this topic Meningococcal B Vacine Aged Out No lo nger eligible based on patient's age to complete this topic RSV Immunization Patients Under 20 months Aged Out No longer eligible based on patient's age to complete this topic Varicella Vaccines Aged Out No longer eligible based on patient's age to complete this topic Insurance Care Teams Town Marshal Relationship Specialty Start Date End Date Cleve Pritchett MD [address] [place] [address] [address] [place] [address] PCP - General Endocrinology 03/28/17
--- OUTSIDE RECORDS SUMMARY | 2024-06-25 16:11 | XMS_ITS | Continuity of Care Document ---
Author Organization [facility] [address] [place] [address] Phone [phone] Care Team Providers Care Sewage Treatment Plant Operator Name Role Phone Cleve Pritchett M.D. Care Team Information Re ceiver [phone] Problems Active Problems Provider Date Chronic obstructive lung disease Cleve manuel M.D. Onset: 11/04/2021 Sleep apnea Cleve Pritchett M.D. Onset: 0 11/04/2021 Gout Cleve Pritchett M.D. Onset: 0 11/04/2021 Atrial fibrillation Cleve Pritchtet M.D. Onse t: 11/04/2021 Current drinker Cleve Pritchett M.D. Onset: 0 11/04/2021 Carcinoma of lung Cleve Pritchett M.D. Onset: 11/04/2021 Hyperlipidemia Cleve Pritchett M.D. Onset: 0 11/04/2021 Anxiety Cleve Pritchett M.D. Onset: 0 10/29/2022 History of radiofrequency ab lation operation for arrhythmia Cleve Pritchett M.D. Onset: 10/29/2022 Alcoholic cardiomyopathy Cleve Pritchett M.D. Onset: 10/29/2022 Social History Type Date Description Comments Sex Unknown Lives With Spouse Tobacco Use Start: Unknown End: Unknown Patient is a former smoker Medications Active Medications SIG Qnty Indications Order ing Provider Date Amoxicillin/Clavulan ate [id number] Tablets 1 tab by mouth twice a day 20tabs Cleve Pritchett M.D. 11/08/2023 Paxlovid (300/100)20x 150 mg & 10 x 100mg TBPK as directed 1units Cleve Pritchett M.D. 04/14/2022 Atorvastatin [id number] Tablets Take One Tablet By Mouth Every Day as Directed 90tabs Cleve Pritchett M.D. 11/04/2021 Alprazolam0.5mg Tablets Take 1 Tablet By Mouth Three Times A Day as Needed 60tabs Cleve Pritchett M.D. 11/04/2021 Venlafaxine HCL ER75mg Caps ER 24HR Take Three Capsules By Mouth Every Day 270caps Cleve Pritchett M.D. Metoprolol Succinate ER50mg Tablets ER 24HR Take 1/2 Tablet By Mouth Every Day Unknown [id number] Tablets Take One Tablet By Mouth Every Day 90tabs Cleve Pritchett M.D. Ketoconazole2% Cream Apply To Scaly Rash On Ears Twice A Day For Maintenance Unknown Vital Signs Date Vital Result Comment 05/23/2024 1:14pm Height 71.5 inches 5'11.50 Weight 234.00 lb BMI (Body Mass Index) 32.2 kg/m2 Results Test Acquired Date Facility Test Result H/L Range Note Comp. Metabolic Panel (14) 11/18/2023 [facility] Glucose 86 mg/dL 70-99 BUN 14 mg/dL 8-27 Creatinine 0.71 mg/dL Low 0.76-1. 27 eGFR 96 mL/min/1.7 3 >59 BUN/Creatinine Ratio 20 10-24 Sodium 136 mmol/L 134-144 Potassium 4.8 mmol/L 3.5-5.2 Chloride 95 mmol/L Low 96-106 Carbon Dioxide, Total 25 mmol/L 20-29 Calcium 9.4 mg/dL 8.6-10. 2 Protein, Total 6.5 g/dL 6.0-8.5 Albumin 4.0 g/dL 3.8-4.8 Globulin, Total 2.5 g/dL 1.5-4.5 Bilirubin, Total 0.3 mg/dL 0.0-1.2 Alkaline Phosphatase 100 IU/L 44-121 Ast (Sgot) 34 IU/L 0-40 Alt (SGPT) 57 IU/L High 0-44 CBC With Differential/Paul telet 11/18/2023 [facility] WBC 11.6 x10E3/uL High 3.4-10. 8 RBC 4.44 x10E6/uL 4.14-5. 80 Hemoglobin 13.8 g/dL 13.0-17 .7 Hematocrit 41.0 % 37.5-51 .0 MCV 92 fL 79-97 MCH 31.1 pg 26.6-33 .0 MCHC 33.7 g/dL 31.5-35 .7 RDW 11.7 % 11.6-15 .4 Platelets 545 x10E3/uL High 150-450 Neutrophils 67 % Not Estab. Lymphs 15 % Not Estab. Monocytes 11 % Not Estab. Eos 4 % Not Estab. Basos 1 % Not Estab. Immature Cells TN Neutrophils (Absolute) 7.9 x10E3/uL High 1.4-7.0 Lymphs (Absolute) 1.7 x10E3/uL 0.7-3.1 Monocytes(Absol brooklynn) 1.2 x10E3/uL High 0.1-0.9 Eos (Absolute) 0.5 x10E3/uL High 0.0-0.4 Baso (Absolute) 0.1 x10E3/uL 0.0-0.2 Immature Granulocytes 2 % Not Estab. Immature Grans (Abs) 0.2 x10E3/uL High 0.0-0.1 1 NRBC [facility] Hematology Comments: TNP Comprehensive Metabolic Panl 04/27/2023 [facility] Glucose 105 mg/dL High (70-99) BUN 13 mg/dL (8-23) Creatinine 0.9 mg/dL (0.7-1. 2) Sodium 139 mmol/L (133-14 5) Potassium 4.6 mmol/L (3.6-5. 2) Chloride 98 mmol/L (98-107 ) Bicarbonate 25 mmol/L (22-29) Anion Gap 16 (4-17) Albumin 4.8 GM/DL (3.4-4. 8) Calcium 9.7 mg/dL (8.6-10 .5) Bilirubin,Total 0.8 mg/dL (0-1.2 ) Total Protein 7.2 GM/DL (6.2-8. 2) Ag Ratio 2.0 Ast 22 U/L (0-40) Alk Phos 107 U/L (40-129 ) Alt 14 U/L (0-41) Estimated GFR Creatinine 90 ML/MIN/1.7 3M2 2 Lipid Panel 04/27/2023 [facility] Cholesterol, Total 249 mg/dL High (<200) Triglyceride 115 mg/dL (<150) HDL Chol 79 mg/dL (>39) LDL Cholesterol, Calculated 147 mg/dL High (0-130) Non HDL Cholesterol (Calc) 170 mg/dL High (<160) Urinalysis Complete 04/27/2023 [facility] Appear/Color YELLOW 3 SP. [place] 1.026 (1.002- 1.030) Urine PH 5.5 (5.0-8. 0) Urine Albumin 1+ Abnormal (Neg) Urine Glucose NEGATIVE (Neg) Urine Ketones NEGATIVE (Neg) Urine Bilirubin NEGATIVE (Neg) Urine Hemoglobin NEGATIVE (Neg) Urine Nitrite NEGATIVE (Neg) Urine Leukocyte NEGATIVE (Neg) Urobilinogen NORMAL mg/dL (Norm) Urine WBCs 1 /HPF (0-5) Urine RBCs 1 /HPF (0-3) Mucus SLIGHT /LPF Squamous Epith 1 /HPF (0-8) Hyaline Cast 11 LPF High (0-2) Complete Abc With Diff 04/27/2023 [facility] WBC 7.6 K/MM3 (4.0-11 .0) RBC 4.83 M/MM3 (4.70-6 .10) HGB 14.8 GM/DL (13.7-1 7.1) HCT 46.5 % (40.5-5 0.0) MCV 96.3 FL High (80.0-9 4.0) MCH 30.6 pg (27.0-3 4.0) MCHC 31.8 g/dL Low (33.0-3 7.0) PLT 271 K/MM3 (150-46 0) RDW-SD 50.4 FL High (<47.0) MPV 10.0 FL (9.4-12 .4) Automated NRBC 0.0 #/100WBC'S Abs. NRBC 0.0 K/MM3 Neut # 5.0 K/MM3 (1.3-7. 0) Lymph # 1.4 K/MM3 (0.8-3. 1) Prentiss# 0.8 K/MM3 (0.4-1. 3) Eo # 0.2 K/MM3 (0.0-0. 4) Baso # 0.0 K/MM3 (0.0-0. 1) Abs. Imm Gran 0.0 K/MM3 Neut 66.3 % (44-76) Lymph 18.9 % (15-43) Monocyte 11.0 % High (4.5-10 .5) Eo 2.9 % (0-6) Baso 0.5 % (0-2) Imm Gran 0.4 % Laboratory test finding 04/27/2023 [facility] PSA 0.5 NG/ML (0-4) 4 25Oh Vitamin D 38.6 NG/ML (20-50 ) Uric Acid 7.3 mg/dL (2.6-8. 7) Laboratory test finding 10/29/2022 Inhouse Hemoglobin A1c 5.3% Glucose Fingerstick 105 Laboratory test finding 11/04/2021 Inhouse Hemoglobin A1c 5.0% Complete Abc With Diff 10/30/2021 [facility] WBC 7.5 K/MM3 (4.0-11 .0) RBC 4.88 M/MM3 (4.70-6 .10) HGB 15.7 GM/DL (13.7-1 7.1) HCT 48.0 % (40.5-5 0.0) MCV 98.4 FL High (80.0-9 4.0) MCH 32.2 pg (27.0-3 4.0) MCHC 32.7 g/dL Low (33.0-3 7.0) PLT 270 K/MM3 (150-46 0) RDW-SD 49.6 FL High (<47.0) MPV 10.2 FL (9.4-12 .4) Automated NRBC 0.0 #/100WBC'S Abs. NRBC 0.0 K/MM3 Neut # 4.7 K/MM3 (1.3-7. 0) Lymph # 1.7 K/MM3 (0.8-3. 1) Prentiss# 0.8 K/MM3 (0.4-1. 3) Eo # 0.3 K/MM3 (0.0-0. 4) Baso # 0.0 K/MM3 (0.0-0. 1) Abs. Imm Gran 0.1 K/MM3 Neut 62.4 % (44-76) Lymph 22.2 % (15-43) Monocyte 10.6 % High (4.5-10 .5) Eo 3.6 % (0-6) Baso 0.5 % (0-2) Imm Gran 0.7 % Comprehensive Metabolic Panl 10/30/2021 [facility] Glucose 120 mg/dL High (70-99) BUN 8 mg/dL (8-23) Creatinine 1.0 mg/dL (0.7-1. 2) Sodium 139 mmol/L (133-14 5) Potassium 4.6 mmol/L (3.6-5. 2) Chloride 96 mmol/L Low (98-107 ) Bicarbonate 28 mmol/L (22-29) Anion Gap 15 (4-17) Albumin 4.7 GM/DL (3.4-4. 8) Calcium 10.1 mg/dL (8.6-10 .5) Bilirubin,Total 0.8 mg/dL (0-1.2 ) Total Protein 7.0 GM/DL (6.2-8. 2) Ag Ratio 2.0 Ast 23 U/L (0-40) Alk Phos 120 U/L (40-129 ) Alt 19 U/L (0-41) Estimated GFR Creatinine 80 ML/MIN/1.7 3M2 5 Lipid Panel 10/30/2021 [facility] Cholesterol, Total 163 mg/dL (<200) Triglyceride 91 mg/dL (<150) HDL Chol 81 mg/dL (>39) LDL Cholesterol, Calculated 64 mg/dL (0-130) Non HDL Cholesterol (Calc) 82 mg/dL (<160) Laboratory test finding 10/30/2021 [facility] PSA Screen 0.7 NG/ML (0-4) 6 TSH 2.22 uIU/mL (0.4-4. 2) Urinalysis Complete 10/30/2021 [facility] Appear/Color YELLOW 7 SP. [place] 1.012 (1.002- 1.030) Urine PH 5.5 (5.0-8. 0) Urine Albumin 1+ Abnormal (Neg) Urine Glucose NEGATIVE (Neg) Urine Ketones NEGATIVE (Neg) Urine Bilirubin NEGATIVE (Neg) Urine Hemoglobin NEGATIVE (Neg) Urine Nitrite NEGATIVE (Neg) Urine Leukocyte 1+ Abnormal (Neg) Urobilinogen NORMAL mg/dL (Norm) Urine WBCs 22 /HPF High (0-5) Urine RBCs 1 /HPF (0-3) Bacteria MODERATE HPF Abnormal (Neg) Mucus SLIGHT /LPF Squamous Epith 2 /HPF (0-8) Hyaline Cast 85 LPF High (0-2) 1 (An elevated percent age of Immature Granulocytes has not been found to be clinically significant as a sole clinical predictor of disease. Does NOT include bands or blast cells. associated physiological leukocytosis may also show increased immature granulocytes without clinical significance.) 2 Creatinine based est imated glomerular filtration (eGFR) in adults is calculated using the [employer] recommended 2021 CKD-EPI equation. Estimates GFR from serum creatinine, age and sex. 3 CLEAR 4 TEST PERFORMED USING THE FANG ELECTROCHEMILLUMINESCENCE TOTAL PSA ASSAY. PSA VALUES OBTAINED WITH OTHER ASSAY METHODS OR KITS CANNOT BE USED INTERCHANGEABLY. 5 Creatinine based est imated glomerular filtration (eGFR) in adults is calculated using the National [employer] recommended 202 CKD-EPI equation. Estimates GFR from serum creatinine, age and sex. 6 TEST PERFORMED USING THE FANG ELECTROCHEMILLUMINESCENCE TOTAL PSA ASSAY. PSA VALUES OBTAINED WITH OTHER ASSAY METHODS OR KITS CANNOT BE USED INTERCHANGEABLY. 7 TURBID Procedures Date Code Description Status 11/15/2023 NSHOWOFF No Show Office Visit Complet ed Medical Devices Description No Information Available Encounters Type Date Location Provider Dx Diagnosis Office Visit 05/23/2024 1:00p Main Office Cleve Pritchett M.D. J44.9 Chronic obstructive pulmonary disease, unspecified R06.00 Dyspnea, unspecified I48.91 Unspecified atrial f ibrillation Assessments Date Code Description Provider 05/23/2024 J44.9 Chronic obstruct popeye pulmonary disease, unspecified Cleve Pritchett M.D. 05/23/2024 R06.00 Dyspnea Cleve manuel M.D. 05/23/2024 I48.91 Atrial fibrillat ion with rapid ventricular response Cleve Pritchett M.D. Plan of Treatment No Information Available Functional Status Description No Information Available Mental Status Description No Information Available Referrals Description No Information Available
--- OUTSIDE RECORDS SUMMARY | 2024-06-25 16:11 | XMS_ITS | Encounter Summary ---
Author Organization [facility] Address [address] [place] [address] Care Team Providers Care Expediter Name Role Phone Cleve Pritchett MD Primary Care Provider Reason for Visit * Reason Onset Date Comments Atrial Fibrillation 05/25/2024 Encounter Details Date Type Department Care Team (Late st Contact Info) Description 05/25/2024 Telephone [facility] Cardiology [address] [address] Axel Horowitz MD [address] [place] [id number] Atrial Fibrillation Social History Tobacco Use Types Packs/Day Years [...] on file Sexual Orientation Not on file documented as of this encounter Progress Notes * Peg Carroll RN - 05/30/2024 3:15 PM EST Noted SR in office and sent task asking if in fact patient added on to schedule for Ablation and ifthere was a time as per patient's , physician at hospital did not know. Noted LM response. Called left message on voice mail with LM response to call Hospital and ask which she already did. * ROEL Keller - 05/30/2024 3:08 PM EST She needs to ask the people at the hospital , [facility] is not aware of inpatient scheduling and Dr. Levine is very busy-I defer all her questions and the patient's questions about medication to the inpatient medical team-this is not appropriate outpatient phone messages * Peg Carroll RN - 05/30/2024 2:16 PM EST Spoke with . Patient is still inpatient. [place] notes scanned in. She states was not present when SR saw patient yesterday and she is wondering if Ablation is scheduled for tomorrow as she believes SR stated he was squeezing patient in tomorrow for procedure. She is asking if there is a time. * ROEL Keller - 05/30/2024 12:30 PM EST Is patient still in house at [facility]? If so this can be discussed with the [facility] cardiology physician. If they have been discharged can you please obtain Dr. Levine's consult and discharge notes and scanand for review * Catina Zambrano - 05/29/2024 11:15 AM EST The patients Perlita called, she would like to go the information from his consult with Dr. Levine. Please call her back at [phone]. * Jus Thakur RN - 05/25/2024 1:49 PM EST Teams rosmeryd Francis Pierce as he is rounding at [facility] and pt is a Francis Horowitz pt. * Jus Thakur RN - 05/25/2024 1:02 PM EST Per consultation note with Dr. Levine in the hospital at [facility] on 05/24/24: PLAN: I suspect he has recurrent connections as his ablation, which I do not have access to his records in 2010 appeared to have reconnections possible as it was done with radiofrequency. I think he is a very good candidate for pulsed field ablation, particularly as antiarrhythmics are somewhat difficult as I do not want him to be on long-term amiodarone, though I think it will be effective givenhis pulmonary status. I reviewed the pulsed field ablation procedure in detail and I will schedule him for that and I reviewed the 1-2% risk of , stroke, [place], infection, cardiac perforation, and tamponade. I also would like to start him on amiodarone 400 daily for 2 weeks, then 200 daily thereafter to help increase the odds of maintaining sinus rhythm and he will likely be on Xarelto lifelong. Hospital records from [facility] scanned into [employer] for review under media tab. Called pt this PM. States HR 170-180 sustained and very dizzy when he stands up - states feeling like he could pass out but has not. BP at 12:25 today 90/61, repeat a few min later 114/79. His monitoring device and Apple Watch are indicating AFIB. Did not send breathless on the phone and/or like hewas in resp distress. Has taken his Almodipine 400mg this AM as he was not able to scrap picker RX last night. Has not been taking Metoprolol - was Dcd in the hospital. Has been taking his Xarelto with nointerruption. Made aware d/t being symptomatic with sustained elevated HR he should call 911. Is refusing to call 911 - is aware of the risks. States his will drive him. Called expect to [facility] ER. * Veronica Angulo - 05/25/2024 11:45 AM EST Patient was seen at [facility] for Atrial Fibrillation and was prescribed Amiodarone by Dr. Levine while he was there. He was discharged on 05/24/24 and he was not able to pickup the medication from the pharmacy until this morning. He finally took the medication, but now he feels like he is going to go back into afib. He would like to know what he should do. Patient is ok at the moment,but he is nervous. documented in this encounter Plan of Treatment Not on file documented as of this encounter Visit Diagnoses Not on filedocumented in this encounter Discontinued Medications Medication Sig Discontinue Reason Start Date End Da te metoprolol succinate (TOPROL-XL) 50 mg 24 hr tablet Take 1 tablet (50 mg total) by mouth 1 (one) time each day. Prescriber Discontinued 02/25/2024 05/25/2024 documented as of this encounter Historical Medications * This list may reflect changes made after this encounter. amiodarone (PACERONE) 200 mg tablet Take 1 tablet (200 mg total) by mouth 1 (one) time each day. amiodarone 400 daily for 2 weeks, then 200 daily thereafter added in this encounter Care Teams Expediter Relationship Specialty Start Date End Date Cleve Pritchett MD [address] [place] [address] [address] [place] [address] PCP - General Endocrinology 03/28/17 documented as of this encounter
== END 2024-06-25 14:09 | disposition home or self-care (01) ==
LOC: HO.XRAY 14:08
PROVIDERS: PCP Internal Medicine Endocrinology, Diabetes & Metabolism; Visit Provider Hospitalist
DX: R06.09 Other forms of dyspnea (principal)
CPT/HCPCS: 71046

== ENCOUNTER → 2024-06-25 14:15 | Outpatient (BNV) | payer BC, SELFPAY | PROVIDERS: PCP Internal Medicine Endocrinology, Diabetes & Metabolism; Visit Provider Radiology Diagnostic Radiology | DX: R06.09 Other forms of dyspnea (principal) | CPT/HCPCS: 71046 ==

== ENCOUNTER 2024-07-23 13:06 | Outpatient (AMB) | payer BC, SELFPAY ==
--- NOTE | 2024-07-23 13:12 | MHC.OFFVIS ---
Vital Signs 07/23/24 13:13 Height 6 ft 1 in Weight 231 lb 7.766 oz BMI 30.5 BP 118/64 Blood Pressure Location Lt brachial Position Sitting Pulse 81 Pulse Source Pulse Oximeter Pulse Oximetry (%) 97 Oxygen Delivery Method Room Air Intake Visit Reasons: COPD Allergies No Known Allergies Allergy (Verified 07/23/24 13:16) HPI Comments Details: The patient is a 73-year-old gentleman with known history of COPD in addition to obstructive sleep apnea and diaphragmatic paresis. apparently the patient has been having worsening shortness of breath. He recently went to [place] and while he was there he was developing severe dyspnea. Patient could barely walk 1 block. He does have a rescue inhaler that he uses with partial improvement of his symptoms. He does not have any maintenance inhalers at this time. He does state that he did follow-up with thoracic surgery. The did evaluate his elevated hemidiaphragm and repeated this sniff study. Indeed he did have some paradoxical movement of the left hemidiaphragm. it was decided not to pursue plication of the diaphragm after the patient understood the risk and benefits of the procedure. The patient states that he has not been using the CPAP. He had been using before but then he stopped using it because he can not tolerate the pressures. At this time he is no longer getting supplies. Will go ahead and have him bring his machine to see if we can adjust the machine. The patient understands that he needs to uses in order to try to provide positive pressure to his lung to try to inflated in view of the nonfunctional diaphragm in addition to the fact that he has underlying cardiac arrhythmias. We did go for 6 minutes walk test the patient was very short of breath with dyspnea score of 8/10. During the ambulation is pulse ox maintain around 96% although the heart rate was already elevated in the 130s. The patient quickly became short of breath and his heart rate increased above 115. I did call his flight information expediter and spoke to the flight information expediter covering. the plan is for the patient to increase his metoprolol from 25-50 mg because his blood pressure is stable. also, he will have an appointment with Cardiology where he will have a Holter monitor and further adjust his medications accordingly. 12/31/2021 the patient is here for a pulmonary follow-up visit. He seems to be tolerating the higher dose metoprolol. Continues to have significant dyspnea with minimal activity. Moderate severity. The Spiriva inhaler has been helping. Although he still has episodes with shortness of breath. The patient is wondering about a short-acting beta agonist. At this point with the atrial fibrillation and rapid ventricular response I will send Xopenex. We may have to do a prior approval. The patient continues to have significant daytime drowsiness. His [place] score is elevated 12/24. Needs to have a sleep study in order to get an back acquainted to using his CPAP. The patient has been diagnosed with sleep apnea in the past. The patient understands that treating his underlying sleep apnea will be important in the treatment for the cardiovascular disease. 05/17/2022 the patient is here for a pulmonary follow-up visit. The patient is still struggling with CPAP. Continues to have daytime drowsiness. Even while trying to use some. his [place] score is still elevated 12/24. We did review his last sleep study Still demonstrating severe sleep apnea and significant hypoxia. The patient needs to be able to tolerate his CPAP due to the significant adverse effects. Specially with his cardiac history. He has been using the nasal pillows. He does complain of a dry mouth. I did provide him with an F 30 mask with the hope that he can tolerated better. He did okay although it did start leaking at higher pressure. Therefore he will have to try to adjusted at home. In any case will go ahead and request for him to get restart [facility] in order for him to get supplies. I do believe that he needs to be set up with the [facility] with them to see which is the best mask for him to use with CPAP. His current settings are 6-8. Will continue on that setting while he tries the new mask he probably would need higher pressure if able. He does have facial hair which also makes it difficult to get a good seal. However, at this point the patient would like to stay on the Spiriva. In addition to that we talked about the importance of pulmonary rehab. The patient understands that the more deconditioning gets the more short of breath he is going to become. He is not interested in in person rehab. I did give him information about underlying pulmonary rehab that he can look into. 08/17/2022 The patient is here for a pulmonary follow up visit. The patient also complains of dyspnea on exertion. Moderate in severity. He has been on Spiriva. We did look at his previous breathing studies and he does have severe COPD with moderate to severe diffusion impairment. The patient will benefit from optimizing his respiratory therapy. We did talk about some options. The patient is willing to try Trelegy at this time. The patient is still struggling with CPAP. Continues to have daytime drowsiness. Even while trying to use some. his [place] score is still elevated 04/10. We did review his last sleep study Still demonstrating severe sleep apnea and significant hypoxia. The patient needs to jacque his CPAP. He does have a hard time sleeping. He will get a wedge pillow and will try to use his cpap machine. If he needs a sleep aid, he will call the office. 12/21/2022 patient is here for pulmonary follow-up visit. She is still struggling with shortness of breath. Moderate severity. Was prescribed Trelegy inhaler but he only used it a few days and then he stopped it. He went back to using Spiriva he is not sure if the inhalers are going to help because in his view his breathing is primarily due to diaphragmatic paralysis. I did review his PFTs. Explained to him that he does have severe COPD in addition to the restrictive process. The patient did have a good response to bronchodilators and will work commend him starting the Trelegy in using it regularly. In addition to that the patient has not been very active. We talked about the importance of staying active and exercising and building up respiratory muscle capacity. Therefore we will repeat his PFTs and refer him back to pulmonary rehabilitation. He was referred before but he only went to the introductory class and then did not follow through. At this point the patient understands that in view of his worsening condition he needs to start participating. He is also trying to lose weight. He started some lifestyle changes also at this time. Also, the patient is not using his CPAP regularly. We did talk about the importance of using the CPAP specially with his diaphragm. Also with underlying obstructive sleep apnea. He will start using it more regularly. 04/21/2023 the patient is here for a pulmonary follow-up visit. The patient overall has been doing well. He recently had COVID-19. Did not really affect his breathing. However he stopped using his Trelegy for a an unknown reason. He has not gone back to using it. He understands that he does have significant obstruction. We did review his PFTs. He does have severe COPD. the patient also has an elevated diaphragm resulting in worsening respiratory symptoms. He is does not daytime drowsiness. In view of his COPD will go ahead and perform an overnight oximetry to see if he has any nocturnal hypoxia. The patient is participating the pulmonary rehabilitation. He is finding this helpful. Otherwise patient is without any other complaints. Will plan to follow-up sometime in the fall of 2023. if any new issues arise the patient is to call the office for an earlier assessment. 12/27/2023 the patient is here for pulmonary follow-up visit. He has multiple constitutional complaints including dizziness and shortness of breath and fatigue. He has been using the oxygen at nighttime. Did qualify with the overnight oximetry spending more than 30 minutes below 88%. The oxygen therapy has been affecting beneficial. Although, it is very loud for him he has a hard time sleeping with the son the concentrator. He is looking at other potential alternatives. We did look at different options. I also called the [employer] to see if they can provide him with a different option although is not clear at this time. They will going to reach out back to the office. In meantime he does uses respiratory therapy as prescribed. Does not seem like the dizziness is vertiginous. It may be related to his cardiovascular issues since his heart rate is elevated. He also did not take the medications that he is opposed to taking the morning as he had from gotten in therefore may have some degree of withdrawal from medication effect. Therefore, multifactorial this time. But I do not believe that the dizziness is from evidence of hypoxia. 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 That can also cause him to have underlying shortness of breath even with normal oxygen based on the work of breathing. Will go ahead and request a repeat x-ray just to assess the area her otherwise her continue with the current respiratory therapy. I did recommend he continue with pulmonary rehabilitation or do it on his own. Will follow-up in the spring. if the patient has an issues he will call prior. Also to note he did have about her bronchitis and COPD exacerbation with summer. He did require antibiotics and some prednisone. 07/23/2024 the patient is here for a pulmonary follow-up visit. Since we last spoke he was admitted to [facility] with uncontrolled AFib. He failed cardioversion so he underwent ablation. He currently is on amiodarone. He is complaining of dizziness. Also have daytime drowsiness. Her [place] score is elevated 11/24. The patient does have a history sleep apnea. Now with the worsening cardiac arrhythmias and symptomatic the patient should really be placed back on CPAP. He has using the past but has some difficulties in the past. Now he understands the importance. Will go ahead and request an in-lab sleep study specially with cardiac arrhythmias in his nocturnal hypoxia. In addition to that the patient has been demonstrating worsening dyspnea on exertion. Moderate severity with minimal activity. His last PFTs were done back in 2022. 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 His last CT scan was back in 2023. He is scheduled to have another CAT scan in the coming months. He is getting that at [facility]. For now will go ahead and have him get repeat PFTs. Will plan to do walking oximetry when he returns and will review his sleep study. He will continue with the current respiratory therapy. If he has not issues prior to that daily will call for an earlier assessment. [facility] Medical History (Updated 07/23/24 @ 13:32 by Addison Jesus MD) Nocturnal hypoxia Dyspnea ALLY (obstructive sleep apnea) Diaphragmatic paresis COPD (chronic obstructive pulmonary disease) Social History Household Members: Spouse Household Members Other:: Patient Tobacco Use Status: Former Tobacco user Tobacco use type: Cigarette Years Smoked: 9 Second Hand Smoke Exposure: Yes (as a child) Review of Systems Const Reports daytime sleepiness, Reports difficulty sleeping, Reports fatigue and Denies fever(s) Eyes Denies change in vision ENT Denies change in voice and Reports dizziness Card Reports dyspnea on exertion and Reports orthopnea Resp Reports cough, Denies hemoptysis and Reports dyspnea on exertion GI Reports no additional complaints Musc Reports no additional complaints Skin/Breast Denies rash Neuro Reports no additional complaints and Reports dizziness Endo Reports fatigue Physical Exam Vital Signs: Last Vital Signs Pulse 81 07/23/24 13:13 BP 118/64 07/23/24 13:13 Pulse Ox 97 07/23/24 13:13 Oxygen Delivery Method Room Air 07/23/24 13:13 BMI result Body Mass Index 30.5 Const General: comfortable HEENT Head: Yes normal to inspection Eyes General: appearance normal, both eyes and all related structures Neck Neck: Yes supple Chest Chest palpation & inspection: normal inspection of the chest Resp Effort & Inspection: normal respiratory effort Auscultation: no rales, no rhonchi, no wheezes and diminished lung sounds Cardio Rate: tachycardic Rhythm: regular rhythm Heart sounds: S1 normal heart sound present and S2 normal heart sound present GI Inspection: Yes normal to inspection Skin General skin exam: no rashes or lesions noted Extrem General: Yes no clubbing, cyanosis or edema Assessment & Plan Assessment & Plan (1) COPD (chronic obstructive pulmonary disease): Code(s): J44.9 - Chronic obstructive pulmonary disease, unspecified Category: Medical Qualifiers: COPD type: chronic bronchitis Chronic bronchitis type: simple Qualified Code(s): J41.0 - Simple chronic bronchitis (2) Diaphragmatic paresis: Code(s): J98.6 - Disorders of diaphragm Category: Medical (3) ALLY (obstructive sleep apnea): Code(s): G47.33 - Obstructive sleep apnea (adult) (pediatric) Category: Medical (4) Atrial fibrillation with RVR: Code(s): I48.91 - Unspecified atrial fibrillation Category: Medical (5) Dyspnea: Code(s): R06.00 - Dyspnea, unspecified Category: Medical Qualifiers: Dyspnea type: dyspnea on exertion Qualified Code(s): R06.09 - Other forms of dyspnea (6) Nocturnal hypoxia: Code(s): G47.34 - Idiopathic sleep related nonobstructive alveolar hypoventilation Category: Medical Plan continue Trelegy 100 wedge pillow continue oxygen supplementation 2L/min while sleeping continue xopenex as needed (can not tolerate albuterol due to afib and high HR) in lab sleep study PFTs follow-up 3-4 months Orders: Orders RT PSG in-lab sleep study Today G47.33 - Obstructive sleep apnea (adult) (pediatric), G47.34 - Idiopathic sleep related nonobstructive alveolar hypoventilation, I48.91 - Unspecified atrial fibrillation PFT pulmonary function test Today J41.0 - Simple chronic bronchitis Coding Level of Care Code Est Pt Level 4 (36732) Complex EM visit Add On G2211 Diagnoses Simple chronic bronchitis J41.0 COPD type: chronic bronchitis Chronic bronchitis type: simple Diaphragmatic paresis J98.6 ALLY (obstructive sleep apnea) G47.33 Atrial fibrillation with RVR I48.91 Dyspnea on exertion R06.09 Dyspnea type: dyspnea on exertion Nocturnal hypoxia G47.34 Time Spent (min) 17
[2024-07-23 13:13] VITALS: BP 118/64; PULSE 81; O2SAT 97; BMI 30.5
--- OUTSIDE RECORDS SUMMARY | 2024-07-23 15:33 | XMS_ITS | Encounter Summary ---
Author Organization [facility] Address [address] [place] [address] Care Team Providers Care Back Tender Insulation Board Name Role Phone Cleve Pritchett MD Primary Care Provider [phone] Reason for Visit * Reason Onset Date Comments Med Refill 07/19/2024 Encounter Details Date Type Department Care Team (Late st Contact Info) Description 07/19/2024 Telephone [facility] - [facility] [address] [facility] [address] [place] [address] Eimly Levine MD [address] [facility] [address] [place] [address] Med Refill Social History Tobacco Use Types Packs/Day Years [...] on file documented as of this encounter Ordered Prescriptions Prescription Sig Dispense Quantity Refills Last Filled Start Date End Date amiodarone (PACERONE) 200 mg tablet Take 1 tablet (200 mg total) by mouth 1 (one) time each day. 90 tablet 1 07/19/2024 documented in this encounter Progress Notes * Mar Velásquez MA - 07/19/2024 1:11 PM EDT Upcoming appt 08/08/24--efaxed a ref for amiodarone 200 mg daily * Nola Barnard - 07/19/2024 11:55 AM EDT Patient needs a refill for Amiodarone 200 mg 1 tab daily. Send to [facility] in [facility] for 30 day supply. This medication was prescribed while he was at [facility]. documented in this encounter Plan of Treatment Upcoming Encounters Date Type Department Care Team (Late st Contact Info) Description 08/08/2024 2:40 PM EDT Office Visit [facility] - [facility] [address] [facility] [address] [place] [address] Nisreen Chow PA [address] [place] [address] documented as of this encounter Visit Diagnoses Not on filedocumented in this encounter Discontinued Medications Medication Sig Discontinue Reason Start Date End Da te amiodarone (PACERONE) 200 mg tablet Take 1 tablet (200 mg total) by mouth 1 (one) time each day. amiodarone 400 daily for 2 weeks, then 200 daily thereafter Reorder 07/19/2024 documented as of this encounter Care Teams Back Tender Insulation Board Relationship Specialty Start Date End Date Cleve Pritchett MD [address] [place] [address] [address] [place] [address] PCP - General Endocrinology 03/28/17 documented as of this encounter
--- OUTSIDE RECORDS SUMMARY | 2024-07-23 15:33 | XMS_ITS | Clinical Summary ---
Author Organization [address] [facility] Address [address] [place] [address] Phone Care Team Providers Care Public Safety Police Name Role Phone Cleve Pritchett MD Primary Care Provider Allergies No known active allergies Medications ALPRAZolam (XANAX) 0.5 mg tablet Take 0.5 mg by mouth. 1-3 Times a day/prn Active cholecalcifero l (VITAMIN D-3) 25 mcg (1,000 unit) tablet [...] (one) time each day. 90 tablet 1 5 Active amiodarone (PACERONE) 200 mg tablet Take 1 tablet (200 mg total) by mouth 1 (one) time each day. amiodarone 400 daily for 2 weeks, then 200 daily thereafter 07/20/19 25 Discontinu ed(Reorder ) Active Problems Problem Noted Date Diagnosed Date [...] (03/19/2024 2:16 PM EST): Maintaining sinus rhythm. [id number] is 5 and currently tolerating rivaroxaban. Continue with metoprolol. Erectile dysfunction 06/15/2017 Hyperlipidemia 06/15/2017 Assessment & Plan (03/19/2024 2:16 PM EST): Atorvastatin discontinued for unclear reason. Diet controlled for now. Will reevaluate after next lipid panel. Pulmonary nodule 06/15/2017 COPD (chronic obstructive pulmonary disease) ALLY (obstructive sleep apnea) 05/05/2017 Overview (03/19/2024): [facility] Home Polysomnogram: Date 09/12/2017; AHI 38, Unclassified [...] Encounters Date Type Department Care Team Description 07/19/2024 Telephone [facility] - [address] [place] [address] Emily Levine MD Med Refill 05/25/[address] [place] [address] Axel Horowitz MD Atrial Fibrillation 05/17/[address] [place] [address] Axel Horowitz MD low heart rate from [...] dysfunction COPD (chronic obstructive pu lmonary disease) ([facility]) 05/05/2017 DX:COPD (chronic obstructive pulmonary disease) ([facility]) ALLY (obstructive sleep apnea) 05/05/2017 DX :ALLY [...] 02/29/2024 10:58 AM EST Plan of Treatment Upcoming Encounters Date Type Department Care Team (Late st Contact Info) Description 08/08/2024 2:40 PM EDT Office Visit [facility] - [address] [place] [address] Nisreen Chow PA [address] [place] [address] Health Maintenance Due Date Last Done Comments [...] Years Completed 02/06/2021, 01/21/2020, 03/25/2011 RSV Immunization Adult Patients Completed 03/26/2023 COVID-19 Vaccine Completed 01/31/2024, , [...] age to complete this topic Meningococcal B Vaccine Aged Out No l onger eligible based on patient's age to complete this topic RSV Immunization Patients Under 20 months Aged Out No longer eligible based on patient's age to complete this topic Varicella Vaccines Aged Out No longer eligible based on patient's age to complete this topic Insurance Care Teams Public Safety Police Relationship Specialty Start Date End Date Cleve Pritchett MD [address] [place] [address] [address] [place] [address] PCP - General Endocrinology 03/28/17
--- OUTSIDE RECORDS SUMMARY | 2024-07-23 15:34 | XMS_ITS | Continuity of Care Document ---
Author Organization [facility] [address] [facility] [address] [place] [address] Phone [phone] Care Team Providers Care Hunter Name Role Phone Cleve Pritchett M.D. Care Team Information Re ceiver [phone] Problems Active Problems Provider Date Chronic obstructive lung disease Cleve manuel M.D. Onset: 11/04/2021 Sleep apnea Cleve Pritchett M.D. Onset: 0 11/04/2021 Gout Cleve Pritchett M.D. Onset: 0 11/04/2021 Atrial fibrillation Cleve Pritchett M.D. Onse t: 11/04/2021 Current drinker Cleve [...] Indications Order ing Provider Date Amoxicillin/Clavulan ate [id number] Tablets 1 tab by mouth twice a day 20tabs Cleve Pritchett M.D. 11/08/2023 Paxlovid (300/100)20x 150 mg & 10 x 100mg TBPK as directed 1units Cleve Pritchett M.D. 04/14/2022 Atorvastatin [id number] Tablets Take One Tablet By Mouth Every [...] 1/2 Tablet By Mouth Every Day Unknown [id number] Tablets Take One Tablet By Mouth Every Day 90tabs Cleve Pritchett M.D. Ketoconazole2% Cream Apply To Scaly Rash On Ears Twice A Day For Maintenance Unknown Vital Signs Date Vital Result Comment 05/23/2024 1:14pm Height 71.5 inches 5'11.50 Weight 234.00 lb BMI (Body Mass Index) 32.2 kg/m2 Results Test Acquired Date Facility Test Result H/L Range Note CBC With Differential/Paul telet 11/18/2023 [facility] WBC [...] Basos 1 % Not Estab. Immature Cells TNP Neutrophils (Absolute) 7.9 x10E3/uL High 1.4-7.0 Lymphs (Absolute) 1.7 x10E3/uL 0.7-3.1 Monocytes(Absol [place]) 1.2 x10E3/uL High 0.1-0.9 Eos (Absolute) 0.5 x10E3/uL High 0.0-0.4 Baso (Absolute) 0.1 x10E3/uL 0.0-0.2 Immature Granulocytes 2 % Not Estab. Immature Grans (Abs) 0.2 x10E3/uL High 0.0-0.1 1 NRBC TNP Hematology Comments: [place] Comp. Metabolic Panel (14) 11/18/2023 [facility] Glucose [...] 0-40 Alt (SGPT) 57 IU/L High 0-44 Comprehensive Metabolic Panl 04/27/2023 [facility] Glucose 105 mg/dL High (70-99) [...] 90 ML/MIN/1.7 3M2 2 Lipid Panel 04/27/2023 [facility] Cholesterol, Total 249 mg/dL High (<200) Triglyceride 115 mg/dL (<150) HDL Chol 79 mg/dL (>39) LDL Cholesterol, Calculated 147 mg/dL High (0-130) Non HDL Cholesterol (Calc) 170 mg/dL High (<160) Urinalysis Complete 04/27/2023 [facility] Appear/Color YELLOW 3 SP. [place] 1.026 (1.002- 1.030) Urine PH 5.5 (5.0-8. [...] High (0-2) Complete Abc With Diff 04/27/2023 [facility] WBC 7.6 K/MM3 (4.0-11 .0) [...] 0) Lymph # 1.4 K/MM3 (0.8-3. 1) Petroleum# 0.8 K/MM3 (0.4-1. 3) Eo # 0.2 K/MM3 (0.0-0. 4) Baso # 0.0 K/MM3 (0.0-0. 1) Abs. Imm Gran 0.0 K/MM3 Neut 66.3 % (44-76) Lymph 18.9 % (15-43) Monocyte 11.0 % High (4.5-10 .5) Eo 2.9 % (0-6) Baso 0.5 % (0-2) Imm Gran 0.4 % PSA 04/27/2023 [facility] PSA 0.5 NG/ML (0-4) 4 25Oh Vitamin D 04/27/2023 [facility] 25Oh Vitamin D 38.6 NG/ML (20-50) Uric Acid 04/27/2023 [facility] Uric Acid 7.3 mg/dL (2.6-8. 7) Hemoglobin A1c 10/29/2022 Inhouse Hemoglobin A1c 5.3% Glucose Fingerstick 10/29/2022 Inhouse Glucose Fingerstick 105 Hemoglobin A1c 11/04/2021 Inhouse Hemoglobin A1c 5.0% Complete Abc With Diff 10/30/2021 [facility] WBC 7.5 K/MM3 (4.0-11 .0) [...] 0) Lymph # 1.7 K/MM3 (0.8-3. 1) Petroleum# 0.8 K/MM3 (0.4-1. 3) Eo # 0.3 K/MM3 (0.0-0. 4) Baso # 0.0 K/MM3 (0.0-0. 1) Abs. Imm Gran 0.1 K/MM3 Neut 62.4 % (44-76) Lymph 22.2 % (15-43) Monocyte 10.6 % High (4.5-10 .5) Eo 3.6 % (0-6) Baso 0.5 % (0-2) Imm Gran 0.7 % Comprehensive Metabolic Panl 10/30/2021 [facility] Glucose 120 mg/dL High (70-99) [...] 80 ML/MIN/1.7 3M2 5 Lipid Panel 10/30/2021 [facility] Cholesterol, Total 163 mg/dL (<200) Triglyceride 91 mg/dL (<150) HDL Chol 81 mg/dL (>39) LDL Cholesterol, Calculated 64 mg/dL (0-130) Non HDL Cholesterol (Calc) 82 mg/dL (<160) PSA Screen 10/30/2021 [facility] PSA Screen 0.7 NG/ML (0-4) 6 TSH 10/30/2021 [facility] TSH 2.22 uIU/mL (0.4-4. 2) Urinalysis Complete 10/30/2021 [facility] Appear/Color YELLOW 7 SP. [place] 1.012 (1.002- 1.030) Urine PH 5.5 (5.0-8. [...]
== END 2024-07-23 13:41 | disposition home or self-care (01) ==
LOC: HO.HPS 13:07
PROVIDERS: PCP Internal Medicine Endocrinology, Diabetes & Metabolism; Visit Provider Hospitalist
DX: J41.0 Simple chronic bronchitis (principal); J98.6 Disorders of diaphragm; G47.33 Obstructive sleep apnea (adult) (pediatric); I48.91 Unspecified atrial fibrillation; R06.09 Other forms of dyspnea; G47.34 Idiopathic sleep related nonobstructive alveolar hypoventilation
CPT/HCPCS: 99214

== ENCOUNTER → 2024-07-23 13:06 | Outpatient (BNVA) | payer BC, SELFPAY | PROVIDERS: PCP Internal Medicine Endocrinology, Diabetes & Metabolism; Visit Provider Hospitalist | DX: J44.9 Chronic obstructive pulmonary disease, unspecified (principal); J98.6 Disorders of diaphragm; R06.00 Dyspnea, unspecified; R06.09 Other forms of dyspnea ==

== ENCOUNTER 2024-09-05 12:53 | Outpatient (REF) | payer BC, SELFPAY ==
--- NOTE | 2024-09-05 13:02 | PFT_ITS ---
Flows: FEV1: 47 % of predicted at 1.54 L FVC: 69 % of predicted at 3.10 L FEV1/FVC: 50 % Bronchodilator response: Absent Volumes: Total lung capacity: 62 % of predicted at 4.82 L Residual volume: 58 % of predicted at 1.72 L Slow vital capacity: 66 % of predicted at 3.10 L Expiratory reserve volume: 61 % of predicted at 0.88 L Diffusion capacity: Moderately decreased, corrects to normal after adjustment for alveolar ventilation. 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 Decreased expiratory reserve volume suggests extrathoracic restriction likely secondary to abdominal obesity. Combination of restrictive ventilatory defect and decreased diffusion capacity suggests underlying pulmonary parenchymal disease. Clinical correlation is advised. VERNELLD
--- OUTSIDE RECORDS SUMMARY | 2024-09-05 13:30 | XMS_ITS | Continuity of Care Document ---
Author Organization [facility] [address] [facility] [address] [place] [address] Phone [phone] Care Team Providers Care Mass Spectrometry Specialist Name Role Phone Cleve Pritchett M.D. Care Team Information Re ceiver [phone] Problems Active Problems Provider Date Chronic obstructive [...] Indications Order ing Provider Date Amoxicillin/Clavulan ate [id number] Tablets 1 tab by mouth twice a day 20tabs Cleve Pritchett M.D. 11/08/2023 Paxlovid (300/100)20x 150 mg & 10 x 100mg TBPK as directed 1units Cleve Pritchett M.D. 04/14/2022 Atorvastatin [id number] Tablets Take One Tablet By Mouth Every [...] 1/2 Tablet By Mouth Every Day Unknown [id number] Tablets Take One Tablet By Mouth Every [...] IU/L High 0-44 Comprehensive Metabolic Panl 04/27/2023 [facility] Glucose 105 mg/dL High [...] 90 ML/MIN/1.7 3M2 2 Lipid Panel 04/27/2023 [facility] Cholesterol, Total 249 mg/dL High (<200) Triglyceride 115 mg/dL (<150) HDL Chol 79 mg/dL (>39) LDL Cholesterol, Calculated 147 mg/dL High (0-130) Non HDL Cholesterol (Calc) 170 mg/dL High (<160) Urinalysis Complete 04/27/2023 [facility] Appear/Color YELLOW 3 SP. [place] 1.026 (1.002- 1.030) Urine PH 5.5 (5.0-8. [...] High (0-2) Complete Abc With Diff 04/27/2023 [facility] WBC 7.6 K/MM3 (4.0-11 [...] 0) Lymph # 1.4 K/MM3 (0.8-3. 1) [place]# 0.8 K/MM3 (0.4-1. 3) Eo # 0.2 K/MM3 (0.0-0. 4) Baso # 0.0 K/MM3 (0.0-0. 1) Abs. Imm Gran 0.0 K/MM3 Neut 66.3 % (44-76) Lymph 18.9 % (15-43) Monocyte 11.0 % High (4.5-10 .5) Eo 2.9 % (0-6) Baso 0.5 % (0-2) Imm Gran 0.4 % PSA 04/27/2023 [facility] PSA 0.5 NG/ML (0-4) 4 25Oh Vitamin D 04/27/2023 [facility] 25Oh Vitamin D 38.6 NG/ML (20-50) Uric Acid 04/27/2023 [facility] Uric Acid 7.3 mg/dL (2.6-8. 7) Hemoglobin A1c 10/29/2022 Inhouse Hemoglobin A1c 5.3% Glucose Fingerstick 10/29/2022 Inhouse Glucose Fingerstick 105 Hemoglobin A1c 11/04/2021 Inhouse Hemoglobin A1c 5.0% Complete Abc With Diff 10/30/2021 [facility] WBC 7.5 K/MM3 (4.0-11 [...] 0) Lymph # 1.7 K/MM3 (0.8-3. 1) [place]# 0.8 K/MM3 (0.4-1. 3) Eo # 0.3 K/MM3 (0.0-0. 4) Baso # 0.0 K/MM3 (0.0-0. 1) Abs. Imm Gran 0.1 K/MM3 Neut 62.4 % (44-76) Lymph 22.2 % (15-43) Monocyte 10.6 % High (4.5-10 .5) Eo 3.6 % (0-6) Baso 0.5 % (0-2) Imm Gran 0.7 % Comprehensive Metabolic Panl 10/30/2021 [facility] Glucose 120 mg/dL High [...] 80 ML/MIN/1.7 3M2 5 Lipid Panel 10/30/2021 [facility] Cholesterol, Total 163 mg/dL (<200) Triglyceride 91 mg/dL (<150) HDL Chol 81 mg/dL (>39) LDL Cholesterol, Calculated 64 mg/dL (0-130) Non HDL Cholesterol (Calc) 82 mg/dL (<160) PSA Screen 10/30/2021 [facility] PSA Screen 0.7 NG/ML (0-4) 6 TSH 10/30/2021 [facility] TSH 2.22 uIU/mL (0.4-4. 2) Urinalysis Complete 10/30/2021 [facility] Appear/Color YELLOW 7 SP. [place] 1.012 (1.002- 1.030) Urine PH 5.5 (5.0-8. [...]
--- OUTSIDE RECORDS SUMMARY | 2024-09-05 13:30 | XMS_ITS | Clinical Summary ---
Author Organization [address] [place] [address] Address [address] [place] [address] Phone Care Team Providers Care Quality Assurance Coach Name Role Phone Cleve Pritchett MD Primary Care Provider [phone] Allergies No known active allergies Medications ALPRAZolam [...] each day. 90 tablet 1 5 Active fluticasone-ume clidinium-vilan terol (Trelegy Ellipta) 100-62.5-25 mcg inhaler Inhale 1 puff (100 mcg total) by mouth 1 (one) time each day. Rinse mouth with water after use to reduce aftertaste and incidence of candidiasis. Do not swallow. Active Active Problems Problem Noted Date Diagnosed Date Typical atrial flutter ([facility] V24, [facility]/HCC V28 ) 10/05/2021 Cardiomyopathy ([facility] V24, [facility] V28) 2020 Overview (03/19/2024): alcoholic cardiomyopathy with mild LV [...] systolic. Orders: ECG 12 lead Supraventricular tachycardia ([facility] V24) 07/22 Dysplastic nevus 06/17/2017 Overview (01/19/2024): back Hiatal hernia 06/17/2017 Anxiety 06/15/2017 Paroxysmal atrial fibrillation ([facility] V24, [facility] /[facility] V28) 06/15/2017 Overview (03/19/2024): status post atrial fibrillation ablation previously on amiodarone Assessment & Plan (03/19/2024 2:16 PM EST): Maintaining sinus rhythm. [id number] is 5 and currently tolerating rivaroxaban. Continue with metoprolol. Erectile dysfunction 06/15/2017 Hyperlipidemia 06/15/2017 Assessment & Plan (03/19/2024 2:16 PM EST): Atorvastatin discontinued for unclear reason. Diet controlled for now. Will reevaluate after next lipid panel. Pulmonary nodule 06/15/2017 COPD (chronic obstructive pu lmonary disease) ([facility] V24, [facility] V28) 05/05/2017 ALLY (obstructive sleep apnea) 05/05/2017 Overview (03/19/2024): SMS Home Polysomnogram: Date 09/12/2017; AHI 38, Unclassified [...] Encounters Date Type Department Care Team Description 08/08/2024 2:40 PM EDT Office Visit [facility] [address] [facility] [address] [place] [phone] Nisreen Chow PA Atrial fibrillation, unspecified type (CMS/HCC V24, CMS/HCC V28) (Primary Dx) 07/19/2024 Telephone [facility] [address] [place] [phone] Emily Santamaria MD Med Refill from Last 3 Months Surgical History Surgery Date Site/Laterality Comments OTHER SURGICAL HISTORY PROCEDURE: ---- OTHER ----; COMMENT: RLL lobectomy stage 1 lung cancer CARDIAC CATHETERIZATION 10/07/2016 PROCEDURE: HISTORICAL CARDIAC CATH; COMMENT: normal coronaries OTHER SURGICAL HISTORY PROCEDURE: HISTORY OTHER; COMMENT: Dysplastic Nevus removal (back) Medical History Medical History Date Comments Atrial fibrillation (CMS/HCC V24, CMS/HCC V28) 06/15/2017 DX:Atrial fibrillation (HCC) Pulmonary nodule 06/15/2017 DX:Pulmonary no dule History of lung cancer 06/15/2017 DX:Histor y of lung cancer; COMMENT: Stage 1 Hyperlipidemia 06/15/2017 DX:Hyperlipidemi a H/O alcoholic cardiomyopathy 06/15/2017 DX: H/O alcoholic cardiomyopathy Anxiety 06/15/2017 DX:Anxiety Heart valve disorder 06/15/2017 DX:Heart va lve disorder; COMMENT: Mild , mild MR Erectile dysfunction 06/15/2017 DX:Erectile dysfunction COPD (chronic obstructive pu lmonary disease) ([facility] V24, [facility] V28) 05/05/2017 DX:COPD (chronic o bstructive pulmonary disease) ([facility]) ALLY (obstructive sleep apnea) 05/05/2017 DX [...] 0 04/18/1975 - 04/18/1992 Smokeless Tobacco: Never Tobacco Cessation:Counseling Given: Not Answered Alcohol Use Standard Drinks/Week Comments Yes 7 (1 standard drink = 0.6 oz pur e alcohol) ocasionally Sex and Gender Information Value Date Recorded Sex Assigned at Not on file Legal Sex Male 8:08 AM EST Gender Identity Not on file Sexual Orientation Not on file Obstetrics History Last Filed Vital Signs Vital Sign Reading Time Taken Comments Blood Pressure 134/82 08/08/2024 2:36 PM EDT Pulse 89 08/08/2024 2:36 PM EDT Temperature - - Respiratory Rate - - Oxygen Saturation 97% 08/08/2024 2:36 PM EDT Inhaled Oxygen Concentration - - Weight 106 kg (234 lb 6.4 oz) 08/08/2024 2:36 PM EDT Height 185.4 cm (6' 1 ) 08/08/2024 2:36 PM EDT Body Mass Index 30.93 08/08/2024 2:36 PM EDT Plan of Treatment Upcoming Encounters Date Type Department Care Team (Late st Contact Info) Description 10/15/2024 12:40 PM EDT Office Visit [facility] [address] [place] [address] Nisreen Chow PA [address] [place] [address] Health Maintenance Due Date Last Done Comments DTaP,Tdap,and Td Vaccines (1 - Tdap) 10/11/1967 Zoster Vaccines (1 of 2) 10/11/1967 Abdominal Aortic Aneurysm (AAA) Screen 03/21/2022 Cholesterol Screening (Lipid Panel) 03/21/2022 Colorectal Cancer Screening: Colonoscopy 03/21/2022 Depression Screening 03/21/2022 Falls Risk Assessment 03/21/2022 Hepatitis C Screening 03/21/2022 Social Influencers of Health Screening 03/21/2022 Hypertension/CHF/CAD Annual BMP Blood Test 02/29/2024 COVID-19 Vaccine (8 - Moderna risk ) 07/31/2024 01/31/2024, 02/05/2023, 02/15/2022, Additional history exists Pneumococcal Vaccine: 50+ Years Completed 02/06/2021, 01/21/2020, 03/25/2011 RSV Immunization Adult Patients Completed 03/26/2023 Influenza Vaccine Completed 01/31/2024, , 02/15/2022, Additional [...] on patient's age to complete this topic Procedures Procedure Name Priority Date/Time Associated Diagnosis Comments ECG 12-LEAD Routine 08/08/2024 3:52 PM EDT Atrial fibrillation, unspecified type (CMS/HCC V24, CMS/HCC V28) from Last 3 Months Results * ECG 12 lead (08/08/2024 3:52 PM EDT) Ventricular Rate ECG 89 BPM GEMUSE Atrial Rate 89 BPM GEMUSE P-R Interval 170 ms GEMUSE QRS Duration 130 ms GEMUSE Q-T Interval 396 ms GEMUSE QTc 481 ms GEMUSE P Wave [place] 90 degrees GEMUSE R [place] -62 degrees GEMUSE T [place] 73 degrees GEMUSE ECG Interpretation Normal sinus rhythm Left axis deviation Non-specific intra-ventric ular conduction block When compared with ECG of 19-MAR-2024 13:13, Premature atrial complexes are no longer Present Non-specific intra-ventric ular conduction block has replaced Incomplete right bundle branch block Confirmed by VELMA SANTAMARIA ([id number]) on 08/28/2024 12:07:30 PM GEMUSE 08/08/2024 2:45 PM EDT 08/28/2024 12:07 PM EDT us Nisreen SEVILLA ECG ORDERABLES Edited Result - Final GEMUSE from Last 3 Months Insurance Care Teams Quality Assurance Coach Relationship Specialty Start Date End Date Cleve Pritchett MD [address] [place] [address] [address] [place] [address] PCP - General Endocrinology 03/28/17
[2024-09-05 14:03] VITALS: PULSE 96; O2SAT 95
== END 2024-09-05 12:54 | disposition home or self-care (01) ==
LOC: HO.RESP 12:53
PROVIDERS: PCP Internal Medicine Endocrinology, Diabetes & Metabolism; Visit Provider Hospitalist
DX: J41.0 Simple chronic bronchitis (principal)
CPT/HCPCS: 94010; 94640; 94727; 94729

== ENCOUNTER → 2024-09-05 13:02 | Outpatient (BNV) | payer BC, SELFPAY | PROVIDERS: PCP Internal Medicine Endocrinology, Diabetes & Metabolism; Visit Provider Internal Medicine Pulmonary Disease | DX: J44.9 Chronic obstructive pulmonary disease, unspecified (principal) | CPT/HCPCS: 94060; 94727; 94729 ==

== ENCOUNTER 2024-10-22 13:06 | Outpatient (AMB) | payer BC, SELFPAY ==
[2024-10-22 13:07] VITALS: BP 132/66; PULSE 85; O2SAT 95
--- NOTE | 2024-10-22 13:07 | MHC.OFFVIS ---
Vital Signs 10/22/24 13:07 Height 6 ft 1 in Weight 227 lb 1.218 oz BMI 30.0 BP 132/66 Blood Pressure Location Lt brachial Position Sitting Pulse 85 Pulse Source Pulse Oximeter Pulse Oximetry (%) 95 Oxygen Delivery Method Room Air Intake Visit Reasons: COPD Allergies No Known Allergies Allergy (Verified 10/22/24 13:10) HPI Comments Details: The patient is a 74-year-old gentleman with known history of COPD in addition to obstructive sleep apnea and diaphragmatic paresis. apparently the patient has been having worsening shortness of breath. He recently went to [place] and while he was there he was developing severe dyspnea. Patient could barely walk 1 block. He does have a rescue inhaler that he uses with partial improvement of his symptoms. He does not have any maintenance inhalers at this time. He does state that he did follow-up with thoracic surgery. The did evaluate his elevated hemidiaphragm and repeated this sniff study. Indeed he did have some paradoxical movement of the left hemidiaphragm. it was decided not to pursue plication of the diaphragm after the patient understood the risk and benefits of the procedure. The patient states that he has not been using the CPAP. He had been using before but then he stopped using it because he can not tolerate the pressures. At this time he is no longer getting supplies. Will go ahead and have him bring his machine to see if we can adjust the machine. The patient understands that he needs to uses in order to try to provide positive pressure to his lung to try to inflated in view of the nonfunctional diaphragm in addition to the fact that he has underlying cardiac arrhythmias. We did go for 6 minutes walk test the patient was very short of breath with dyspnea score of 8/10. During the ambulation is pulse ox maintain around 96% although the heart rate was already elevated in the 130s. The patient quickly became short of breath and his heart rate increased above 115. I did call his speed reading teacher and spoke to the speed reading teacher covering. the plan is for the patient to increase his metoprolol from 25-50 mg because his blood pressure is stable. also, he will have an appointment with Cardiology where he will have a Holter monitor and further adjust his medications accordingly. 12/31/2021 the patient is here for a pulmonary follow-up visit. He seems to be tolerating the higher dose metoprolol. Continues to have significant dyspnea with minimal activity. Moderate severity. The Spiriva inhaler has been helping. Although he still has episodes with shortness of breath. The patient is wondering about a short-acting beta agonist. At this point with the atrial fibrillation and rapid ventricular response I will send Xopenex. We may have to do a prior approval. The patient continues to have significant daytime drowsiness. His Waldron score is elevated 12/24. Needs to have a sleep study in order to get an back acquainted to using his CPAP. The patient has been diagnosed with sleep apnea in the past. The patient understands that treating his underlying sleep apnea will be important in the treatment for the cardiovascular disease. 05/17/2022 the patient is here for a pulmonary follow-up visit. The patient is still struggling with CPAP. Continues to have daytime drowsiness. Even while trying to use some. his Waldron score is still elevated 12/24. We did review his last sleep study Still demonstrating severe sleep apnea and significant hypoxia. The patient needs to be able to tolerate his CPAP due to the significant adverse effects. Specially with his cardiac history. He has been using the nasal pillows. He does complain of a dry mouth. I did provide him with an F 30 mask with the hope that he can tolerated better. He did okay although it did start leaking at higher pressure. Therefore he will have to try to adjusted at home. In any case will go ahead and request for him to get restart lives with the [facility], [facility] in order for him to get supplies. I do believe that he needs to be set up with the [facility] with them to see which is the best mask for him to use with CPAP. His current settings are 6-8. Will continue on that setting while he tries the new mask he probably would need higher pressure if able. He does have facial hair which also makes it difficult to get a good seal. However, at this point the patient would like to stay on the Spiriva. In addition to that we talked about the importance of pulmonary rehab. The patient understands that the more deconditioning gets the more short of breath he is going to become. He is not interested in in person rehab. I did give him information about underlying pulmonary rehab that he can look into. 08/17/2022 The patient is here for a pulmonary follow up visit. The patient also complains of dyspnea on exertion. Moderate in severity. He has been on Spiriva. We did look at his previous breathing studies and he does have severe COPD with moderate to severe diffusion impairment. The patient will benefit from optimizing his respiratory therapy. We did talk about some options. The patient is willing to try Trelegy at this time. The patient is still struggling with CPAP. Continues to have daytime drowsiness. Even while trying to use some. his Waldron score is still elevated 04/10. We did review his last sleep study Still demonstrating severe sleep apnea and significant hypoxia. The patient needs to jacque his CPAP. He does have a hard time sleeping. He will get a wedge pillow and will try to use his cpap machine. If he needs a sleep aid, he will call the office. 12/21/2022 patient is here for pulmonary follow-up visit. She is still struggling with shortness of breath. Moderate severity. Was prescribed Trelegy inhaler but he only used it a few days and then he stopped it. He went back to using Spiriva he is not sure if the inhalers are going to help because in his view his breathing is primarily due to diaphragmatic paralysis. I did review his PFTs. Explained to him that he does have severe COPD in addition to the restrictive process. The patient did have a good response to bronchodilators and will work commend him starting the Trelegy in using it regularly. In addition to that the patient has not been very active. We talked about the importance of staying active and exercising and building up respiratory muscle capacity. Therefore we will repeat his PFTs and refer him back to pulmonary rehabilitation. He was referred before but he only went to the introductory class and then did not follow through. At this point the patient understands that in view of his worsening condition he needs to start participating. He is also trying to lose weight. He started some lifestyle changes also at this time. Also, the patient is not using his CPAP regularly. We did talk about the importance of using the CPAP specially with his diaphragm. Also with underlying obstructive sleep apnea. He will start using it more regularly. 04/21/2023 the patient is here for a pulmonary follow-up visit. The patient overall has been doing well. He recently had COVID-19. Did not really affect his breathing. However he stopped using his Trelegy for a an unknown reason. He has not gone back to using it. He understands that he does have significant obstruction. We did review his PFTs. He does have severe COPD. the patient also has an elevated diaphragm resulting in worsening respiratory symptoms. He is does not daytime drowsiness. In view of his COPD will go ahead and perform an overnight oximetry to see if he has any nocturnal hypoxia. The patient is participating the pulmonary rehabilitation. He is finding this helpful. Otherwise patient is without any other complaints. Will plan to follow-up sometime in the fall of 2023. if any new issues arise the patient is to call the office for an earlier assessment. 12/27/2023 the patient is here for pulmonary follow-up visit. He has multiple constitutional complaints including dizziness and shortness of breath and fatigue. He has been using the oxygen at nighttime. Did qualify with the overnight oximetry spending more than 30 minutes below 88%. The oxygen therapy has been affecting beneficial. Although, it is very loud for him he has a hard time sleeping with the son the concentrator. He is looking at other potential alternatives. We did look at different options. I also called the [facility] to see if they can provide him with a different option although is not clear at this time. They will going to reach out back to the office. In meantime he does uses respiratory therapy as prescribed. Does not seem like the dizziness is vertiginous. It may be related to his cardiovascular issues since his heart rate is elevated. He also did not take the medications that he is opposed to taking the morning as he had from gotten in therefore may have some degree of withdrawal from medication effect. Therefore, multifactorial this time. But I do not believe that the dizziness is from evidence of hypoxia. 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 That can also cause him to have underlying shortness of breath even with normal oxygen based on the work of breathing. Will go ahead and request a repeat x-ray just to assess the area her otherwise her continue with the current respiratory therapy. I did recommend he continue with pulmonary rehabilitation or do it on his own. Will follow-up in the spring. if the patient has an issues he will call prior. Also to note he did have about her bronchitis and COPD exacerbation with summer. He did require antibiotics and some prednisone. 07/23/2024 the patient is here for a pulmonary follow-up visit. Since we last spoke he was admitted to [facility] with uncontrolled AFib. He failed cardioversion so he underwent ablation. He currently is on amiodarone. He is complaining of dizziness. Also have daytime drowsiness. Her Waldron score is elevated 11/24. The patient does have a history sleep apnea. Now with the worsening cardiac arrhythmias and symptomatic the patient should really be placed back on CPAP. He has using the past but has some difficulties in the past. Now he understands the importance. Will go ahead and request an in-lab sleep study specially with cardiac arrhythmias in his nocturnal hypoxia. In addition to that the patient has been demonstrating worsening dyspnea on exertion. Moderate severity with minimal activity. His last PFTs were done back in 2022. 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 His last CT scan was back in 2023. He is scheduled to have another CAT scan in the coming months. He is getting that at [facility]. For now will go ahead and have him get repeat PFTs. Will plan to do walking oximetry when he returns and will review his sleep study. He will continue with the current respiratory therapy. If he has not issues prior to that daily will call for an earlier assessment. 10/22/2024 the patient is here for pulmonary follow-up visit. The patient overall has been complaining about 6 weeks now with worsening respiratory complaints. Having worsening shortness of breath in addition to cough that at times is productive. She has started noticing some brownish red phlegm also. He did call the office. At that time complaining of some chest discomfort hemoptysis. The recommendation was for him to go to the hospital with the patient decline. Therefore he continue with current respiratory therapy. He has other vague complaints including unsteadiness and dizziness. He feels also breathless with minimal activity. We did go for brief walking oximetry and he was unsteady in his feet but his oxygen level was mid 90s. Heart rate was indeed elevated. He does have history atrial fibrillation. Will go ahead and start him on antibiotics to treat for lower respiratory infection. The patient will undergo blood work in addition to an x-ray today. Will follow-up in the coming weeks. [facility] Medical History (Updated 10/22/24 @ 21:56 by Addison Jesus MD) Nocturnal hypoxia Dyspnea ALLY (obstructive sleep apnea) Diaphragmatic paresis COPD (chronic obstructive pulmonary disease) Social History Household Members: Spouse Household Members Other:: Patient Tobacco Use Status: Former Tobacco user Tobacco use type: Cigarette Years Smoked: 9 Second Hand Smoke Exposure: Yes (as a child) Review of Systems Const Reports daytime sleepiness, Reports difficulty sleeping, Reports fatigue and Denies fever(s) Eyes Denies change in vision ENT Denies change in voice and Reports dizziness Card Reports dyspnea on exertion and Reports orthopnea Resp Reports cough, Denies hemoptysis and Reports dyspnea on exertion GI Reports no additional complaints Musc Reports no additional complaints and Reports abnormal gait Skin/Breast Denies rash Neuro Reports no additional complaints, Reports abnormal gait and Reports dizziness Endo Reports fatigue Physical Exam Vital Signs: Last Vital Signs Pulse 85 10/22/24 13:07 BP 132/66 10/22/24 13:07 Pulse Ox 95 10/22/24 13:07 Oxygen Delivery Method Room Air 10/22/24 13:07 BMI result Body Mass Index 30.0 Const General: comfortable HEENT Head: Yes normal to inspection Eyes General: appearance normal, both eyes and all related structures Neck Neck: Yes supple Chest Chest palpation & inspection: normal inspection of the chest Resp Effort & Inspection: normal respiratory effort Auscultation: no rales, no rhonchi, no wheezes and diminished lung sounds Cardio Rate: tachycardic Rhythm: regular rhythm Heart sounds: S1 normal heart sound present and S2 normal heart sound present GI Inspection: Yes normal to inspection Skin General skin exam: no rashes or lesions noted Extrem General: Yes no clubbing, cyanosis or edema Assessment & Plan Assessment & Plan (1) COPD (chronic obstructive pulmonary disease): Code(s): J44.9 - Chronic obstructive pulmonary disease, unspecified Category: Medical Qualifiers: COPD type: COPD with acute lower respiratory infection Qualified Code(s): J44.0 - Chronic obstructive pulmonary disease with (acute) lower respiratory infection (2) Diaphragmatic paresis: Code(s): J98.6 - Disorders of diaphragm Category: Medical (3) ALLY (obstructive sleep apnea): Code(s): G47.33 - Obstructive sleep apnea (adult) (pediatric) Category: Medical (4) Atrial fibrillation with RVR: Code(s): I48.91 - Unspecified atrial fibrillation Category: Medical (5) Dyspnea: Code(s): R06.00 - Dyspnea, unspecified Category: Medical Qualifiers: Dyspnea type: dyspnea on exertion Qualified Code(s): R06.09 - Other forms of dyspnea (6) Nocturnal hypoxia: Code(s): G47.34 - Idiopathic sleep related nonobstructive alveolar hypoventilation Category: Medical Plan start Prednisone taper start Doxycycline continue Trelegy 100-->200mcg wedge pillow continue oxygen supplementation 2L/min while sleeping continue xopenex as needed (can not tolerate albuterol due to afib and high HR) PFT-severe obstruction and restriction CXR Bloodwork and blood gas follow-up 3-4 months Orders: Orders Venous Blood Gas Today J41.0 - Simple chronic bronchitis Complete Blood Count Auto Diff Today J41.0 - Simple chronic bronchitis Erythrocyte Sedimentation Rate Today J41.0 - Simple chronic bronchitis Basic Metabolic Panel Today J41.0 - Simple chronic bronchitis Vitamin B12 and Folate Today I48.91 - Unspecified atrial fibrillation, R06.09 - Other forms of dyspnea Magnesium Today I48.91 - Unspecified atrial fibrillation, R06.09 - Other forms of dyspnea XR chest 2V Today J41.0 - Simple chronic bronchitis Phosphorus Today I48.91 - Unspecified atrial fibrillation, R06.09 - Other forms of dyspnea Medications: New chxwhpevart-xqlzuaedd-moekzkko 200-62.5-25 mcg (Trelegy Ellipta) 1 inh inhalation DAILY 60 ea 12RF 30 days prednisone Take 2 tabs daily x 5 days, then 1 tablet daily x 5 days 20 mg PO DAILY 15 tabs 0RF 10 days doxycycline hyclate 100 mg PO BID 20 caps 0RF 10 days Coding Level of Care Code Est Pt Level 4 (78391) Complex EM visit Add On G2211 Diagnoses Chronic obstructive pulmonary disease with acute lower respiratory infection J44.0 COPD type: COPD with acute lower respiratory infection Diaphragmatic paresis J98.6 ALLY (obstructive sleep apnea) G47.33 Atrial fibrillation with RVR I48.91 Dyspnea on exertion R06.09 Dyspnea type: dyspnea on exertion Nocturnal hypoxia G47.34 Time Spent (min) 17
--- OUTSIDE RECORDS SUMMARY | 2024-10-22 13:33 | XMS_ITS | Continuity of Care Document ---
Author Organization [facility] [address] [place] [address] Phone [phone] Care Team Providers Care Sheet Metal Journeyman Name Role Phone Cleve Pritchett M.D. Care Team Information Re ceiver [phone] Problems Active Problems Provider Date Chronic obstructive [...] Social History Type Date Description Comments Sex Male Sex Unknown Lives With Spouse Tobacco Use Start: Unknown End: Unknown Patient is a former smoker Medications Active Medications SIG Qnty Indications Order ing Provider Date Amoxicillin/Clavulan ate [id number] Tablets 1 tab by mouth twice a day 20tabs Cleve Pritchett M.D. 11/08/2023 Paxlovid (300/100)20x 150 mg & 10 x 100mg TBPK as directed 1units Cleve Pritchett M.D. 04/14/2022 Atorvastatin [id number] Tablets Take One Tablet By Mouth Every Day as Directed 90tabs Cleve Pritchett M.D. 11/04/2021 Alprazolam0.5mg Tablets Take One Tablet By Mouth Three Times A Day as Needed 60tabs Cleve Pritchett M.D. 11/04/2021 Venlafaxine HCL ER75mg Caps ER 24HR Take Three Capsules By Mouth Every Day 270caps Cleve Pritchett M.D. Metoprolol Succinate ER50mg Tablets ER 24HR Take 1/2 Tablet By Mouth Every Day Unknown Vidjstv36xy Tablets Take One Tablet By Mouth Every [...] 1.4-7.0 Lymphs (Absolute) 1.7 x10E3/uL 0.7-3.1 Monocytes(Absol [place]) 1.2 x10E3/uL High 0.1-0.9 Eos (Absolute) 0.5 x10E3/uL High 0.0-0.4 Baso (Absolute) 0.1 x10E3/uL 0.0-0.2 Immature Granulocytes 2 % Not Estab. Immature Grans (Abs) 0.2 x10E3/uL High 0.0-0.1 1 NRBC TNP Hematology Comments: TNP Comp. Metabolic Panel (14) 11/18/2023 [facility] Glucose [...] IU/L High 0-44 Comprehensive Metabolic Panl 04/27/2023 [facility] Glucose 105 mg/dL High [...] 90 ML/MIN/1.7 3M2 2 Lipid Panel 04/27/2023 [facility] Cholesterol, Total 249 mg/dL High (<200) Triglyceride 115 mg/dL (<150) HDL Chol 79 mg/dL (>39) LDL Cholesterol, Calculated 147 mg/dL High (0-130) Non HDL Cholesterol (Calc) 170 mg/dL High (<160) Urinalysis Complete 04/27/2023 [facility] Appear/Color YELLOW 3 SP. [place] 1.026 (1.002- 1.030) Urine PH 5.5 (5.0-8. [...] High (0-2) Complete Abc With Diff 04/27/2023 [facility] WBC 7.6 K/MM3 (4.0-11 [...] 0) Lymph # 1.4 K/MM3 (0.8-3. 1) [place]# 0.8 K/MM3 (0.4-1. 3) Eo # 0.2 K/MM3 (0.0-0. 4) Baso # 0.0 K/MM3 (0.0-0. 1) Abs. Imm Gran 0.0 K/MM3 Neut 66.3 % (44-76) Lymph 18.9 % (15-43) Monocyte 11.0 % High (4.5-10 .5) Eo 2.9 % (0-6) Baso 0.5 % (0-2) Imm Gran 0.4 % PSA 04/27/2023 [facility] PSA 0.5 NG/ML (0-4) 4 25Oh Vitamin D 04/27/2023 [facility] 25Oh Vitamin D 38.6 NG/ML (20-50) Uric Acid 04/27/2023 [facility] Uric Acid 7.3 mg/dL (2.6-8. 7) Hemoglobin A1c 10/29/2022 Inhouse Hemoglobin A1c 5.3% Glucose Fingerstick 10/29/2022 Inhouse Glucose Fingerstick 105 Hemoglobin A1c 11/04/2021 Inhouse Hemoglobin A1c 5.0% Complete Abc With Diff 10/30/2021 [facility] WBC 7.5 K/MM3 (4.0-11 [...] 0) Lymph # 1.7 K/MM3 (0.8-3. 1) [place]# 0.8 K/MM3 (0.4-1. 3) Eo # 0.3 K/MM3 (0.0-0. 4) Baso # 0.0 K/MM3 (0.0-0. 1) Abs. Imm Gran 0.1 K/MM3 Neut 62.4 % (44-76) Lymph 22.2 % (15-43) Monocyte 10.6 % High (4.5-10 .5) Eo 3.6 % (0-6) Baso 0.5 % (0-2) Imm Gran 0.7 % Comprehensive Metabolic Panl 10/30/2021 [facility] Glucose 120 mg/dL High [...] 80 ML/MIN/1.7 3M2 5 Lipid Panel 10/30/2021 [facility] Cholesterol, Total 163 mg/dL (<200) Triglyceride 91 mg/dL (<150) HDL Chol 81 mg/dL (>39) LDL Cholesterol, Calculated 64 mg/dL (0-130) Non HDL Cholesterol (Calc) 82 mg/dL (<160) PSA Screen 10/30/2021 [facility] PSA Screen 0.7 NG/ML (0-4) 6 TSH 10/30/2021 [facility] TSH 2.22 uIU/mL (0.4-4. 2) Urinalysis Complete 10/30/2021 [facility] Appear/Color YELLOW 7 SP. [place] 1.012 (1.002- 1.030) Urine PH 5.5 (5.0-8. [...]
--- OUTSIDE RECORDS SUMMARY | 2024-10-22 13:33 | XMS_ITS | Clinical Summary ---
Author Organization [address] [place] [address] Address [address] [place] [address] Phone Care Team Providers Care Process Supervisor Name Role Phone Cleve Pritchett MD Primary Care Provider [phone] Allergies No known active allergies Medications ALPRAZolam (XANAX) 0.5 mg tablet Take 0.5 mg by mouth. 1-3 Times a day/prn Active cholecalcifero l (VITAMIN D-3) 25 mcg (1,000 unit) tablet Take by mouth daily. Active LEVALBUTEROL HCL INHL Inhale 2 Puffs into the lungs 2 times daily. Active rivaroxaban (XARELTO) 20 mg tablet Take 20 mg by mouth daily. Active venlafaxine XR (EFFEXOR-XR) 75 mg 24 hr capsule Take 3 capsules (225 mg total) by mouth 1 (one) time each day. Active fluticasone-um eclidinium-blair anterol (Trelegy Ellipta) 100-62.5-25 mcg inhaler Inhale 1 puff (100 mcg total) by mouth 1 (one) time each day. Rinse mouth with water after use to reduce aftertaste and incidence of candidiasis. Do not swallow. Active atorvastatin (LIPITOR) 10 mg tablet Take 1 tablet (10 mg total) by mouth at bedtime. Active multivitamin with minerals tablet Take 1 tablet by mouth 1 (one) time each day. Active tiotropium (Spiriva Respimat) 2.5 mcg/actuation inhalation spray Inhale 2 Puffs into the lungs daily. 10/16/19 25 Discontinu ed(Therapy completed) amiodarone (PACERONE) 200 mg tablet Take 1 tablet (200 mg total) by mouth 1 (one) time each day. 90 tablet 1 5 10/16/19 25 Discontinu ed(Therapy completed) Active Problems Problem Noted Date Diagnosed Date Typical atrial flutter (CMS/HCC V24, CMS/HCC V28 ) 10/05/2021 Cardiomyopathy (CMS/HCC V24, CMS/HCC V28) 2020 Overview (03/19/2024): alcoholic cardiomyopathy with [...] Orders: ECG 12 lead Supraventricular tachycardia ([facility] V24) 07/22 Dysplastic nevus 06/17/2017 Overview (01/19/2024): back Hiatal hernia 06/17/2017 Anxiety 06/15/2017 Paroxysmal atrial fibrillation ([facility] V24, CMS /HCC V28) 06/15/2017 Overview (03/19/2024): status post atrial fibrillation ablation previously on amiodarone Assessment & Plan (03/19/2024 2:16 PM EST): Maintaining sinus rhythm. [id number] is 5 and currently tolerating rivaroxaban. Continue with metoprolol. Erectile dysfunction 06/15/2017 Hyperlipidemia 06/15/2017 Assessment & Plan (03/19/2024 2:16 PM EST): Atorvastatin discontinued for unclear reason. Diet controlled for now. Will reevaluate after next lipid panel. Pulmonary nodule 06/15/2017 COPD (chronic obstructive pu lmonary disease) ([facility] V24, [facility] V28) 05/05/2017 ALLY (obstructive sleep apnea) 05/05/2017 [...] Encounters Date Type Department Care Team Description 10/15/2024 12:40 PM EDT Office Visit [facility] [address] [place] [address] Nisreen Chow PA Paroxysmal atrial fibrillation ([facility] V24, [facility] V28) (Primary Dx); ALLY (obstructive sleep apnea); Chronic bronchitis, unspecified chronic bronchitis type ([facility] V24, [facility] V28) 09/07/2024 Telephone [facility] [address] [place] [id number] Nisreen Chow PA Rapid Heart Rate 08/08/2024 2:40 PM EDT Office Visit [facility] [address] [place] [address] Nisreen Chow PA Atrial fibrillation, unspecified type ([facility] V24, [facility] V28) (Primary Dx) from Last 3 Months Surgical History Surgery Date Site/Laterality Comments OTHER SURGICAL HISTORY PROCEDURE: ---- OTHER ----; COMMENT: RLL lobectomy stage 1 lung cancer CARDIAC CATHETERIZATION 10/07/2016 PROCEDURE: HISTORICAL CARDIAC CATH; COMMENT: normal coronaries OTHER SURGICAL HISTORY PROCEDURE: HISTORY OTHER; COMMENT: Dysplastic Nevus removal (back) Medical History Medical History Date Comments Atrial fibrillation ([facility] V24, [facility] V28) 06/15/2017 DX:Atrial fibrillation (HCC) Pulmonary nodule [...] COPD (chronic obstructive pu lmonary disease) ([facility] V24, [facility] V28) 05/05/2017 DX:COPD (chronic o bstructive pulmonary disease) ([facility]) ALLY (obstructive sleep apnea) 05/05/2017 DX :ALLY [...] Sign Reading Time Taken Comments Blood Pressure 132/82 10/15/2024 12:34 PM EDT Pulse 84 10/15/2024 12:34 PM EDT Temperature - - Respiratory Rate - - Oxygen Saturation 97% 10/15/2024 1:03 PM EDT Inhaled Oxygen Concentration - - Weight 104 kg (230 lb) 10/15/2024 12:34 PM EDT Height 185.4 cm (6' 1 ) 10/15/2024 12:34 PM EDT Body Mass Index 30.34 10/15/2024 12:34 PM EDT Plan of Treatment Health Maintenance Due Date Last Done Comments DTaP,Tdap,and Td Vaccines (1 - Tdap) 10/11/1967 Zoster Vaccines (1 of 2) 10/11/1967 Cholesterol Screening (Lipid Panel) 03/21/2022 Depression Screening 03/21/2022 Falls Risk Assessment 03/21/2022 Hepatitis C Screening 03/21/2022 Social Influencers of Health Screening 03/21/2022 Hypertension/CHF/CAD Annual BMP Blood Test 02/29/2024 COVID-19 Vaccine (8 - Moderna risk ) 07/31/2024 01/31/2024, 02/05/2023, 02/15/2022, Additional history exists Influenza Vaccine (#1) 2024 , 02/05/2023, 02/15/2022, Additional history exists Pneumococcal Vaccine: 50+ Years Completed 02/06/2021, 01/21/2020, 03/25/2011 RSV Immunization Adult Patients Completed 03/26/2023 HIB Vaccines Aged Out No longer eligi [...] Date/Time Associated Diagnosis Comments ECG 12-LEAD Routine 10/15/2024 1:20 PM EDT Paroxysmal atrial fibrillation (CMS/HCC V24, CMS/HCC V28) ECG 12-LEAD Routine 08/08/2024 3:52 PM EDT Atrial fibrillation, unspecified type (CMS/HCC V24, CMS/HCC V28) from Last 3 Months Results * ECG 12 lead (10/15/2024 1:20 PM EDT) Only the most recent of2 resultswithin the time period is included. Ventricular Rate ECG 84 BPM GEMUSE Atrial Rate 84 BPM GEMUSE P-R Interval 158 ms GEMUSE QRS Duration 124 ms GEMUSE Q-T Interval 416 ms GEMUSE QTc 491 ms GEMUSE P Wave [place] 94 degrees GEMUSE R [place] -59 degrees GEMUSE T [place] 45 degrees GEMUSE ECG Interpretation Sinus rhythm with Premature atrial complexes Left axis deviation Non-specific intra-ventric ular conduction delay Abnormal ECG When compared with ECG of 08-AUG-2024 14:45, Premature atrial complexes are now Present GEMUSE 10/15/2024 12:4 7 PM EDT Nisreen SEVILAL ECG ORDERABLES Final Result GEMUSE from Last [address] ISELA [place] [facility] Care Teams Process Supervisor Relationship Specialty Start Date End Date Cleve Pritchett MD [address] [facility] [address] [place] [id number] PCP - General Endocrinology 03/28/17
== END 2024-10-22 13:38 | disposition home or self-care (01) ==
LOC: HO.HPS 13:06
PROVIDERS: PCP Internal Medicine Endocrinology, Diabetes & Metabolism; Visit Provider Hospitalist
DX: J44.0 Chronic obstructive pulmonary disease with (acute) lower respiratory infection (principal); J98.6 Disorders of diaphragm; G47.33 Obstructive sleep apnea (adult) (pediatric); I48.91 Unspecified atrial fibrillation; R06.09 Other forms of dyspnea; G47.34 Idiopathic sleep related nonobstructive alveolar hypoventilation
CPT/HCPCS: 99214

== ENCOUNTER 2024-10-22 13:06 | Outpatient (REF) | payer BC, SELFPAY ==
--- NOTE | ~2024-10-22 | XR_ITS ---
EXAMINATION: XR CHEST CLINICAL INFORMATION: J41.0 - Simple chronic bronchitis COMPARISON: 06/25/2024, 02/08/2023. TECHNIQUE: 2 views of the chest were obtained. FINDINGS: Chronically elevated left hemidiaphragm, similar to the prior exam. Blunting of the right costophrenic angle, also stable from the prior exam. Mild dextro positioning of the heart, stable. Borderline cardiac enlargement. Mild prominence of the aortic root, possibly projectional. This is also unchanged. Aortic mural calcification. Mild volume loss right lung. Left base linear atelectasis, stable. Lungs otherwise clear. Mild spinal degenerative changes. Soft tissues appear normal. XR/XR chest 2V IMPRESSION: 1. Chronic basilar parenchymal changes and elevated left hemidiaphragm, stable from 02/08/2023. No active superimposed disease identified. Electronically signed by: Alberto Renee MD 10/22/2024 02:19 PM EDT
[2024-10-22 14:05] LABS: MANUAL DIFF FLAG NO
[2024-10-22 14:12] LABS: Venous Blood Gas Refer to POC result
[2024-10-22 14:17] LABS: VBG HCO3 32 mmol/L (22-26)
[2024-10-22 14:18] LABS: VBG O2 % Saturation 58.0 %
[2024-10-22 15:36] LABS: Hematocrit 42.3 % (42.0-52.0); Hemoglobin 13.5 g/dl (14.0-18.0); Imm Gran Abs Auto 0.08 X10*3/uL (0.00-0.03); Imm Gran Pct Auto 0.9 % (0.0-0.4); Lymphocytes Absolute Auto 1.6 X10*3/uL (1.2-4.9); Mean Corpuscular HGB Conc 31.9 g/dl (31.0-36.0); Mean Corpuscular Hemoglobin 29.9 pg (27.0-33.0); Mean Corpuscular Volume 93.8 fL (80.0-98.0); NRBC Abs Auto 0.000 X10*3/uL (0.0-0.012); NRBC Pct Auto 0.0 /100WBC (0.0-0.2); Platelet Count 452 X10*3/uL (160-400); Red Blood Count 4.51 X10*6/uL (4.60-5.80); White Blood Count 8.6 X10*3/uL (4.8-10.8)
[2024-10-22 16:09] LABS: Anion Gap 11 (12-20); Blood Urea Nitrogen 16 mg/dL (9-16); Calcium 9.0 mg/dL (8.4-10.2); Carbon Dioxide 29 mmol/L (22-29); Chloride 101 mmol/L (96-108); Estimated Glomerular Filt Rate > 60; Magnesium 1.9 mg/dL (1.6-2.6); Potassium 4.1 mmol/L (3.3-5.1); Sodium 137 mmol/L (135-145)
[2024-10-22 16:42] LABS: Folate 8.1 ng/mL (> or = 4.0); Vitamin B12 528 pg/mL (200-900)
== END 2024-10-22 13:07 | disposition home or self-care (01) ==
LOC: HO.LAB 13:06
PROVIDERS: PCP Internal Medicine Endocrinology, Diabetes & Metabolism; Visit Provider Hospitalist
DX: J41.0 Simple chronic bronchitis (principal); J98.6 Disorders of diaphragm; G47.33 Obstructive sleep apnea (adult) (pediatric); I48.91 Unspecified atrial fibrillation; G47.34 Idiopathic sleep related nonobstructive alveolar hypoventilation; R06.02 Shortness of breath; Z87.891 Personal history of nicotine dependence; Z99.81 Dependence on supplemental oxygen; Z79.899 Other long term (current) drug therapy
CPT/HCPCS: 36415; 71046; 80048; 82607; 82746; 82803; 83735; 84100; 85025; 85652

== ENCOUNTER → 2024-10-22 14:04 | Outpatient (BNV) | payer BC, SELFPAY | PROVIDERS: PCP Internal Medicine Endocrinology, Diabetes & Metabolism; Visit Provider Radiology Diagnostic Radiology | DX: J98.6 Disorders of diaphragm (principal); J98.4 Other disorders of lung | CPT/HCPCS: 71046 ==

== ENCOUNTER 2024-12-21 14:04 | Outpatient (AMB) | payer BC, SELFPAY ==
--- NOTE | 2024-12-21 14:05 | A.OFFVIS_ITS ---
Vital Signs 12/21/24 14:06 Height 6 ft 1 in Weight 234 lb 12.677 oz BMI 31.0 BP 118/70 Blood Pressure Location Lt brachial Position Sitting Pulse 98 Pulse Source Pulse Oximeter Pulse Oximetry (%) 97 Oxygen Delivery Method Room Air Intake Visit Reasons: copd Accompanied by: Spouse Allergies No Known Allergies Allergy (Verified 12/21/24 14:09) HPI Comments Details: The patient is a 74-year-old gentleman with known history of COPD in addition to obstructive sleep apnea and diaphragmatic paresis. apparently the patient has been having worsening shortness of breath. He recently went to [place] and while he was there he was developing severe dyspnea. Patient could barely walk 1 block. He does have a rescue inhaler that he uses with partial improvement of his symptoms. He does not have any maintenance inhalers at this time. He does state that he did follow-up with thoracic surgery. The did evaluate his elevated hemidiaphragm and repeated this sniff study. Indeed he did have some paradoxical movement of the left hemidiaphragm. it was decided not to pursue plication of the diaphragm after the patient understood the risk and benefits of the procedure. The patient states that he has not been using the CPAP. He had been using before but then he stopped using it because he can not tolerate the pressures. At this time he is no longer getting supplies. Will go ahead and have him bring his machine to see if we can adjust the machine. The patient understands that he needs to uses in order to try to provide positive pressure to his lung to try to inflated in view of the nonfunctional diaphragm in addition to the fact that he has underlying cardiac arrhythmias. We did go for 6 minutes walk test the patient was very short of breath with dyspnea score of 8/10. During the ambulation is pulse ox maintain around 96% although the heart rate was already elevated in the 130s. The patient quickly became short of breath and his heart rate increased above 115. 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 the plan is for the patient to increase h is metoprolol from 25-50 mg because his blood pressure is stable. also, he will have an appointment with Cardiology where he will have a Holter monitor and further adjust his medications accordingly. 12/31/2021 the patient is here for a pulmonary follow-up visit. He seems to be tolerating the higher dose metoprolol. Continues to have significant dyspnea with minimal activity. Moderate severity. The Spiriva inhaler has been helping. Although he still has episodes with shortness of breath. The patient is wondering about a short-acting beta agonist. At this point with the atrial fibrillation and rapid ventricular response I will send Xopenex. We may have to do a prior approval. The patient continues to have significant daytime drowsiness. His Peconic score is elevated 12/24. Needs to have a sleep study in order to get an back acquainted to using his CPAP. The patient has been diagnosed with sleep apnea in the past. The patient understands that treating his underlying sleep apnea will be important in the treatment for the cardiovascular disease. 05/17/2022 the patient is here for a pulmonary follow-up visit. The patient is still struggling with CPAP. Continues to have daytime drowsiness. Even while trying to use some. his Peconic score is still elevated 12/24. We did review his last sleep study Still demonstrating severe sleep apnea and significant hypoxia. The patient needs to be able to tolerate his CPAP due to the significant adverse effects. Specially with his cardiac history. He has been using the nasal pillows. He does complain of a dry mouth. I did provide him with an F 30 mask with the hope that he can tolerated better. He did okay although it did start leaking at higher pressure. Therefore he will have to try to adjusted at home. In any case will go ahead and request for him to get restart lives with the [employer] in order for him to get supplies. I do believe that he needs to be set up with the [facility] with them to see which is the best mask for him to use with CPAP. His current settings are 6-8. Will continue on that setting while he tries the new mask he probably would need higher pressure if able. He does have facial hair which also makes it difficult to get a good seal. However, at this point the patient would like to stay on the Spiriva. In addition to that we talked about the importance of pulmonary rehab. The patient understands that the more deconditioning gets the more short of breath he is going to become. He is not interested in in person rehab. I did give him information about underlying pulmonary rehab that he can look into. 08/17/2022 The patient is here for a pulmonary follow up visit. The patient also complains of dyspnea on exertion. Moderate in severity. He has been on Spiriva. We did look at his previous breathing studies and he does have severe COPD with moderate to severe diffusion impairment. The patient will benefit from optimizing his respiratory therapy. We did talk about some options. The patient is willing to try Trelegy at this time. The patient is still struggling with CPAP. Continues to have daytime drowsiness. Even while trying to use some. his Peconic score is still elevated 04/10. We did review his last sleep study Still demonstrating severe sleep apnea and significant hypoxia. The patient needs to jacque his CPAP. He does have a hard time sleeping. He will get a wedge pillow and will try to use his cpap machine. If he needs a sleep aid, he will call the office. 12/21/2022 patient is here for pulmonary follow-up visit. She is still struggling with shortness of breath. Moderate severity. Was prescribed Trelegy inhaler but he only used it a few days and then he stopped it. He went back to using Spiriva he is not sure if the inhalers are going to help because in his view his breathing is primarily due to diaphragmatic paralysis. I did review his PFTs. Explained to him that he does have severe COPD in addition to the restrictive process. The patient did have a good response to bronchodilators and will work commend him starting the Trelegy in using it regularly. In addition to that the patient has not been very active. We talked about the importance of staying active and exercising and building up respiratory muscle capacity. Therefore we will repeat his PFTs and refer him back to pulmonary rehabilitation. He was referred before but he only went to the introductory class and then did not follow through. At this point the patient understands that in view of his worsening condition he needs to start participating. He is also trying to lose weight. He started some lifestyle changes also at this time. Also, the patient is not using his CPAP regularly. We did talk about the importance of using the CPAP specially with his diaphragm. Also with underlying obstructive sleep apnea. He will start using it more regularly. 04/21/2023 the patient is here for a pulmonary follow-up visit. The patient yolanda good has been doing well. He recently had COVID-19. Did not really affect his breathing. However he stopped using his Trelegy for a an unknown reason. He has not gone back to using it. He understands that he does have significant obstruction. We did review his PFTs. He does have severe COPD. the patient also has an elevated diaphragm resulting in worsening respiratory symptoms. He is does not daytime drowsiness. In view of his COPD will go ahead and perform an overnight oximetry to see if he has any nocturnal hypoxia. The patient is participating the pulmonary rehabilitation. He is finding this helpful. Otherwise patient is without any other complaints. Will plan to follow-up sometime in the fall of 2023. if any new issues arise the patient is to call the office for an earlier assessment. 12/27/2023 the patient is here for pulmonary follow-up visit. He has multiple constitutional complaints including dizziness and shortness of breath and fatigue. He has been using the oxygen at nighttime. Did qualify with the overnight oximetry spending more than 30 minutes below 88%. The oxygen therapy has been affecting beneficial. Although, it is very loud for him he has a hard time sleeping with the son the concentrator. He is looking at other potential alternatives. We did look at different options. I also called the [employer] to see if they can provide him with a different option although is not clear at this time. They will going to reach out back to the office. In meantime he does uses respiratory therapy as prescribed. Does not seem like the dizziness is vertiginous. It may be related to his cardiovascular issues since his heart rate is elevated. He also did not take the medications that he is opposed to taking the morning as he had from gotten in therefore may have some degree of withdrawal from medication effect. Therefore, multifactorial this time. But I do not believe that the dizziness is from evidence of hypoxia. 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 That can also cause him to have underlying shortness of breath even with normal oxygen based on the work of breathing. Will go ahead and request a repeat x-ray just to assess the area her otherwise her continue with the current respiratory therapy. I did recommend he continue with pulmonary rehabilitation or do it on his own. Will follow-up in the spring. if the patient has an issues he will call prior. Also to note he did have about her bronchitis and COPD exacerbation with summer. He did require antibiotics and some prednisone. 07/23/2024 the patient is here for a pulmonary follow-up visit. Since we last spoke he was admitted to [facility] with uncontrolled AFib. He failed cardioversion so he underwent ablation. He currently is on amiodarone. He is complaining of dizziness. Also have daytime drowsiness. Her Peconic score is elevated 11/24. The patient does have a history sleep apnea. Now with the worsening cardiac arrhythmias and symptomatic the patient should really be placed back on CPAP. He has using the past but has some difficulties in the past. Now he understands the importance. Will go ahead and request an in-lab sleep study specially with cardiac arrhythmias in his nocturnal hypoxia. In addition to that the patient has been demonstrating worsening dyspnea on exertion. Moderate severity with minimal activity. His last PFTs were done back in 2022. 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 His last CT scan was back in 2023. He is scheduled to have another CAT scan in the coming months. He is getting that at [facility]. For now will go ahead and have him get repeat PFTs. Will plan to do walking oximetry when he returns and will review his sleep study. He will continue with the current respiratory therapy. If he has not issues prior to that daily will call for an earlier assessment. 10/22/2024 the patient is here for pulmonary follow-up visit. The patient overall has been complaining about 6 weeks now with worsening respiratory complaints. Having worsening shortness of breath in addition to cough that at times is productive. She has started noticing some brownish red phlegm also. He did call the office. At that time complaining of some chest discomfort hemoptysis. The recommendation was for him to go to the hospital with the patient decline. Therefore he continue with current respiratory therapy. He has other vague complaints including unsteadiness and dizziness. He feels also breathless with minimal activity. We did go for brief walking oximetry and he was unsteady in his feet but his oxygen level was mid 90s. Heart rate was indeed elevated. He does have history atrial fibrillation. Will go ahead and start him on antibiotics to treat for lower respiratory infection. The patient will undergo blood work in addition to an x-ray today. Will follow-up in the coming weeks. 12/21/2024 the patient is here for pulmonary follow-up visit. Overall he is doing about the same. Still complaining of dyspnea on exertion. Moderate severity. He was hospitalized with his atrial fibrillation. Because of the rapid rate the patient was placed on amiodarone briefly. That was not effective and he was then referred to electrophysiology and he underwent an ablation and a pacemaker placement. Seems to be working better at this time. He is no longer taking metoprolol. He was taken off the amiodarone. The patient has been having worsening breathing. He did have a CT scan of the chest in July 2024 at [facility] which I personally reviewed that was ordered by Oncology since he is a cancer survivor. He does have the surgical changes on his right hemithorax with some scarring and some pleural-based reaction in the right lower lobe area. In addition to that he does have the elevated diaphragm moderately on the left hemithorax likely from an injury. He did have pulmonary function studies also in 2024 which demonstrated both a severe obstructive ventilatory defect consistent with severe COPD and also a moderate restrictive ventilatory defect secondary to his postoperative changes and scarring and the elevated diaphragm. We will request a sniff study to assess the functionality of the diaphragm on the left hemithorax. In the meantime he needs to work on deep breathing exercises and building up those respiratory muscles and the accessory respiratory muscles as well. Will continue with respiratory inhalers as pre scribed. He is going to wait on weight management since he has gained weight he needs to lose weight to minimize them transmural pressures. Will plan to follow-up in 4-6 months if he has any issues prior to this he will call for an earlier assessment. [facility] Medical History (Updated 12/23/24 @ 22:41 by Addison Jesus MD) Nocturnal hypoxia Dyspnea ALLY (obstructive sleep apnea) Diaphragmatic paresis COPD (chronic obstructive pulmonary disease) Social History Household Members: Spouse Household Members Other:: Patient Tobacco Use Status: Former Tobacco user Tobacco use type: Cigarette Years Smoked: 9 Second Hand Smoke Exposure: Yes (as a child) Review of Systems Const Reports daytime sleepiness, Reports difficulty sleeping, Reports fatigue and De nies fever(s) Eyes Denies change in vision ENT Denies change in voice and Reports dizziness Card Reports dyspnea on exertion and Reports orthopnea Resp Reports cough, Denies hemoptysis and Reports dyspnea on exertion GI Reports no additional complaints Musc Reports no additional complaints and Reports abnormal gait Skin/Breast Denies rash Neuro Reports no additional complaints, Reports abnormal gait and Reports dizziness Endo Reports fatigue Physical Exam Vital Signs: Last Vital Signs Pulse 98 12/21/24 14:06 BP 118/70 12/21/24 14:06 Pulse Ox 97 12/21/24 14:06 Oxygen Delivery Method Room Air 12/21/24 14:06 BMI result Body Mass Index 31.0 Const General: comfortable HEENT Head: Yes normal to inspection Eyes General: appearance normal, both eyes and all related structures Neck Neck: Yes supple Chest Chest palpation & inspection: normal inspection of the chest Resp Effort & Inspection: normal respiratory effort Auscultation: no rales, no rhonchi, no wheezes and diminished lung sounds Cardio Rate: tachycardic Rhythm: regular rhythm Heart sounds: S1 normal heart sound present and S2 normal heart sound present GI Inspection: Yes normal to inspection Skin General skin exam: no rashes or lesions noted Extrem General: Yes no clubbing, cyanosis or edema Assessment & Plan Assessment & Plan (1) COPD (chronic obstructive pulmonary disease): Code(s): J44.9 - Chronic obstructive pulmonary disease, unspecified Category: Medical Qualifiers: COPD type: COPD with acute lower respiratory infection Qualified Code(s): J44.0 - Chronic obstructive pulmonary disease with (acute) lower respiratory infection (2) Diaphragmatic paresis: Code(s): J98.6 - Disorders of diaphragm Category: Medical (3) ALLY (obstructive sleep apnea): Code(s): G47.33 - Obstructive sleep apnea (adult) (pediatric) Category: Medical (4) Atrial fibrillation with RVR: Comment: s/p ablation with PM placement Code(s): I48.91 - Unspecified atrial fibrillation Category: Medical (5) Dyspnea: Code(s): R06.00 - Dyspnea, unspecified Category: Medical Qualifiers: Dyspnea type: dyspnea on exertion Qualified Code(s): R06.09 - Other forms of dyspnea (6) Nocturnal hypoxia: Code(s): G47.34 - Idiopathic sleep related nonobstructive alveolar hypoventilation Category: Medical Plan continue Trelegy 200mcg wedge pillow continue oxygen supplementation 2L/min while sleeping continue xopenex as needed (can not tolerate albuterol due to afib and high HR) PFT-severe obstruction and restriction SNIFF on line pulmonary rehab follow-up 6 months Orders: Orders IR fluoroscopy <1hr Today J98.6 - Disorders of diaphragm, R06.09 - Other forms of dyspnea Coding Level of Care Code Est Pt Level 4 (14118) Complex EM visit Add On G2211 Diagnoses Chronic obstructive pulmonary disease with acute lower respiratory infection J44.0 COPD type: COPD with acute lower respiratory infection Diaphragmatic paresis J98.6 ALLY (obstructive sleep apnea) G47.33 Atrial fibrillation with RVR I48.91 Dyspnea on exertion R06.09 Dyspnea type: dyspnea on exertion Nocturnal hypoxia G47.34 Time Spent (min) 18
[2024-12-21 14:06] VITALS: BP 118/70; PULSE 98; O2SAT 97; BMI 31.0
--- OUTSIDE RECORDS SUMMARY | 2024-12-21 14:37 | XMS_ITS | Clinical Summary ---
Author Organization [address] [place] [address] Address [address] [place] [address] Phone Care Team Providers Care Draw Furnace Tender Name Role Phone Cleve Pritchett MD Primary Care Provider [phone] Allergies No known active allergies Medications ALPRAZolam [...] mouth 1 (one) time each day. Active fluticasone-ume clidinium-vilan terol (Trelegy Ellipta) 100-62.5-25 [...] day. Active amiodarone (PACERONE) 200 mg tablet TAKE ONE TABLET BY MOUTH EVERY DAY 90 tablet 1 5 Active Active Problems Problem Noted Date Diagnosed Date Typical atrial flutter ([facility] V24, [facility] V28 ) 10/05/2021 Cardiomyopathy ([facility] V24, [facility] V28) 2020 Overview (03/19/2024): alcoholic cardiomyopathy [...] systolic. Orders: ECG 12 lead Supraventricular tachycardia ([facility] V24) 07/22 Dysplastic nevus 06/17/2017 Overview (01/19/2024): back Hiatal hernia 06/17/2017 Anxiety 06/15/2017 Paroxysmal atrial fibrillation ([facility] V24, [facility] V28) 06/15/2017 Overview (03/19/2024): status post atrial fibrillation ablation previously on amiodarone Assessment & Plan (03/19/2024 2:16 PM EST): Maintaining sinus rhythm. [id number] is 5 and currently tolerating rivaroxaban. Continue with metoprolol. Erectile dysfunction 06/15/2017 Hyperlipidemia 06/15/2017 Assessment & Plan (03/19/2024 2:16 PM EST): Atorvastatin discontinued for unclear reason. Diet controlled for now. Will reevaluate after next lipid panel. Pulmonary nodule 06/15/2017 COPD (chronic obstructive pu lmonary disease) ([facility] V24, [facility] V28) 05/05/2017 ALLY (obstructive sleep apnea) [...] Description 10/15/2024 12:40 PM EDT Office Visit [facility] [address] [place] [address] Nisreen Chow PA Paroxysmal atrial fibrillation (CMS/HCC V24, CMS/HCC V28) (Primary Dx); ALLY (obstructive sleep apnea); Chronic bronchitis, unspecified chronic bronchitis type (CMS/HCC V24, CMS/HCC V28) from Last 3 Months Surgical History Surgery [...] COPD (chronic obstructive pu lmonary disease) ([facility] V24, [facility] V28) 05/05/2017 DX:COPD (chronic o bstructive pulmonary disease) ([facility]) ALLY (obstructive sleep apnea) 05/05/2017 DX [...] 2) 10/11/1969 Cholesterol Screening (Lipid Panel) 03/21/2022 Falls Risk Assessment 03/21/2022 Hepatitis C Screening 03/21/2022 Social Influencers of Health Screening 03/21/2022 Hypertension/CHF/CAD Annual BMP Blood Test 02/29/2024 Depression Screening 04/18/2024 COVID-19 Vaccine (8 - Moderna risk season) 2024 01/31/2024, 02/05/2023, 02/15/2022, Additional history exists Influenza [...] Paroxysmal atrial fibrillation (CMS/HCC V24, CMS/HCC V28) from Last 3 Months Results * ECG 12 lead (10/15/2024 1:20 PM EDT) Ventricular Rate ECG 84 BPM GEMUSE Atrial Rate 84 BPM GEMUSE P-R Interval 158 ms GEMUSE QRS Duration 124 ms GEMUSE Q-T Interval 416 ms GEMUSE QTc 491 ms GEMUSE P Wave [place] 94 degrees GEMUSE R [place] -59 degrees GEMUSE T [place] 45 degrees GEMUSE ECG Interpretation Sinus rhythm with Premature atrial complexes Left axis deviation Non-specific intra-ventric ular conduction delay When compared with ECG of 08-AUG-2024 14:45, Premature atrial complexes are now Present Confirmed by SANTAMARIA, VELMA ([id number]) on 10/24/2024 11:29:19 AM GEMUSE 10/15/2024 12:4 7 PM EDT 10/24/2024 11:29 AM EDT us Nisreen SEVILLA ECG ORDERABLES Edited Result - Final GEMUSE from Last 3 Months Insurance Care Teams Draw Furnace Tender Relationship Specialty Start Date End Date Cleve Pritchett MD [address] [place] [address] [address] [place] [address] PCP - General Endocrinology 03/28/17
--- OUTSIDE RECORDS SUMMARY | 2024-12-21 14:37 | XMS_ITS | Continuity of Care Document ---
Author Organization [facility] [address] [place] [address] Phone [phone] Care Team Providers Care Mica Patcher Name Role Phone Cleve Pritchett M.D. Care Team Information Re ceiver [phone] Problems Active Problems Provider Date Chronic obstructive [...] Indications Order ing Provider Date Amoxicillin/Clavulan ate [id number] Tablets 1 tab by mouth twice a day 20tabs Cleve Pritchett M.D. 11/08/2023 Paxlovid (300/100)20x 150 mg & 10 x 100mg TBPK as directed 1units Cleve Pritchett M.D. 04/14/2022 Atorvastatin [id number] Tablets Take One Tablet By Mouth Every [...] 1/2 Tablet By Mouth Every Day Unknown [id number] Tablets Take One Tablet By Mouth Every [...] 1.4-7.0 Lymphs (Absolute) 1.7 x10E3/uL 0.7-3.1 Monocytes(Absol tuolumne) 1.2 x10E3/uL High 0.1-0.9 Eos (Absolute) 0.5 [...] IU/L High 0-44 Comprehensive Metabolic Panl 04/27/2023 [facility] Glucose 105 mg/dL High (70-99) [...] 90 ML/MIN/1.7 3M2 2 Lipid Panel 04/27/2023 [facility] Cholesterol, Total 249 mg/dL High (<200) Triglyceride 115 mg/dL (<150) HDL Chol 79 mg/dL (>39) LDL Cholesterol, Calculated 147 mg/dL High (0-130) Non HDL Cholesterol (Calc) 170 mg/dL High (<160) Urinalysis Complete 04/27/2023 [facility] Appear/Color YELLOW 3 SP. Leo 1.026 (1.002- 1.030) Urine PH 5.5 (5.0-8. [...] High (0-2) Complete Abc With Diff 04/27/2023 [facility] WBC 7.6 K/MM3 (4.0-11 .0) [...] 0) Lymph # 1.4 K/MM3 (0.8-3. 1) Newberry# 0.8 K/MM3 (0.4-1. 3) Eo # 0.2 K/MM3 (0.0-0. 4) Baso # 0.0 K/MM3 (0.0-0. 1) Abs. Imm Gran 0.0 K/MM3 Neut 66.3 % (44-76) Lymph 18.9 % (15-43) Monocyte 11.0 % High (4.5-10 .5) Eo 2.9 % (0-6) Baso 0.5 % (0-2) Imm Gran 0.4 % PSA 04/27/2023 [facility] PSA 0.5 NG/ML (0-4) 4 25Oh Vitamin D 04/27/2023 [facility] 25Oh Vitamin D 38.6 NG/ML (20-50) Uric Acid 04/27/2023 [facility] Uric Acid 7.3 mg/dL (2.6-8. 7) Hemoglobin A1c 10/29/2022 Inhouse Hemoglobin A1c 5.3% Glucose Fingerstick 10/29/2022 Inhouse Glucose Fingerstick 105 Hemoglobin A1c 11/04/2021 Inhouse Hemoglobin A1c 5.0% Complete Abc With Diff 10/30/2021 [facility] WBC 7.5 K/MM3 (4.0-11 .0) [...] 0) Lymph # 1.7 K/MM3 (0.8-3. 1) Newberry# 0.8 K/MM3 (0.4-1. 3) Eo # 0.3 K/MM3 (0.0-0. 4) Baso # 0.0 K/MM3 (0.0-0. 1) Abs. Imm Gran 0.1 K/MM3 Neut 62.4 % (44-76) Lymph 22.2 % (15-43) Monocyte 10.6 % High (4.5-10 .5) Eo 3.6 % (0-6) Baso 0.5 % (0-2) Imm Gran 0.7 % Comprehensive Metabolic Panl 10/30/2021 [facility] Glucose 120 mg/dL High (70-99) [...] 80 ML/MIN/1.7 3M2 5 Lipid Panel 10/30/2021 [facility] Cholesterol, Total 163 mg/dL (<200) Triglyceride 91 mg/dL (<150) HDL Chol 81 mg/dL (>39) LDL Cholesterol, Calculated 64 mg/dL (0-130) Non HDL Cholesterol (Calc) 82 mg/dL (<160) PSA Screen 10/30/2021 [facility] PSA Screen 0.7 NG/ML (0-4) 6 TSH 10/30/2021 [facility] TSH 2.22 uIU/mL (0.4-4. 2) Urinalysis Complete 10/30/2021 [facility] Appear/Color YELLOW 7 SP. Leo 1.012 (1.002- 1.030) Urine PH 5.5 (5.0-8. [...]
== END 2024-12-21 14:48 | disposition home or self-care (01) ==
LOC: HO.HPS 14:04
PROVIDERS: PCP Internal Medicine Endocrinology, Diabetes & Metabolism; Visit Provider Hospitalist
DX: J44.0 Chronic obstructive pulmonary disease with (acute) lower respiratory infection (principal); J98.6 Disorders of diaphragm; G47.33 Obstructive sleep apnea (adult) (pediatric); I48.91 Unspecified atrial fibrillation; R06.09 Other forms of dyspnea; G47.34 Idiopathic sleep related nonobstructive alveolar hypoventilation
CPT/HCPCS: 99214

== ENCOUNTER → 2024-12-21 14:04 | Outpatient (BNVA) | payer BC, SELFPAY | PROVIDERS: PCP Internal Medicine Endocrinology, Diabetes & Metabolism; Visit Provider Hospitalist | DX: J44.0 Chronic obstructive pulmonary disease with (acute) lower respiratory infection (principal); J98.6 Disorders of diaphragm; R06.09 Other forms of dyspnea; Z87.891 Personal history of nicotine dependence; G47.33 Obstructive sleep apnea (adult) (pediatric); Z99.89 Dependence on other enabling machines and devices; I48.91 Unspecified atrial fibrillation; G47.34 Idiopathic sleep related nonobstructive alveolar hypoventilation; Z13.89 Encounter for screening for other disorder ==

== ENCOUNTER 2025-01-10 12:53 | Outpatient (REF) | payer BC, SELFPAY ==
--- NOTE | ~2025-01-10 | FL_ITS ---
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 TECHNIQUE: Disorder of diaphragm. FINDINGS: Moderate elevation of left hemidiaphragm is noted likely from postsurgical changes. The lungs are expanded and clear. Under fluoroscopy and inspiration and expiration there is less than 1 rib interspace movement of the left and right hemidiaphragm. FLUOROSCOPY TIME: 1 minute 9 seconds DOSE AREA PRODUCT: 2597 uGy-m2 (microgray-meter squared) FL/FL fluoroscopy <1hr IMPRESSION: Elevated left hemidiaphragm. There is less than 1 rib interspace movement of the left and right diaphragm. Electronically signed by: Harish Baez MD 01/10/2025 02:32 PM EDT
--- OUTSIDE RECORDS SUMMARY | 2025-01-10 17:38 | XMS_ITS | Continuity of Care Document ---
Author Organization [facility] [address] [place] [address] Phone [phone] Care Team Providers Care Mathematics Improvement Teacher Name Role Phone Cleve Pritchett M.D. Care Team Information Re ceiver [phone] Problems Active Problems Provider Date Chronic obstructive [...] Indications Order ing Provider Date Amoxicillin/Clavulan ate [id number] Tablets 1 tab by mouth twice a day 20tabs Cleve Pritchett M.D. 11/08/2023 Paxlovid (300/100)20x 150 mg & 10 x 100mg TBPK as directed 1units Cleve Pritchett M.D. 04/14/2022 Atorvastatin [id number] Tablets Take One Tablet By Mouth Every [...] 1/2 Tablet By Mouth Every Day Unknown [id number] Tablets Take One Tablet By Mouth Every [...] IU/L High 0-44 Comprehensive Metabolic Panl 04/27/2023 [facility] Glucose 105 mg/dL High [...] 90 ML/MIN/1.7 3M2 2 Lipid Panel 04/27/2023 [facility] Cholesterol, Total 249 mg/dL High (<200) Triglyceride 115 mg/dL (<150) HDL Chol 79 mg/dL (>39) LDL Cholesterol, Calculated 147 mg/dL High (0-130) Non HDL Cholesterol (Calc) 170 mg/dL High (<160) Urinalysis Complete 04/27/2023 [facility] Appear/Color YELLOW 3 SP. Rosebud 1.026 (1.002- 1.030) Urine PH 5.5 (5.0-8. [...] High (0-2) Complete Abc With Diff 04/27/2023 [facility] WBC 7.6 K/MM3 (4.0-11 [...] 0) Lymph # 1.4 K/MM3 (0.8-3. 1) Bradley# 0.8 K/MM3 (0.4-1. 3) Eo # 0.2 K/MM3 (0.0-0. 4) Baso # 0.0 K/MM3 (0.0-0. 1) Abs. Imm Gran 0.0 K/MM3 Neut 66.3 % (44-76) Lymph 18.9 % (15-43) Monocyte 11.0 % High (4.5-10 .5) Eo 2.9 % (0-6) Baso 0.5 % (0-2) Imm Gran 0.4 % PSA 04/27/2023 [facility] PSA 0.5 NG/ML (0-4) 4 25Oh Vitamin D 04/27/2023 [facility] 25Oh Vitamin D 38.6 NG/ML (20-50) Uric Acid 04/27/2023 [facility] Uric Acid 7.3 mg/dL (2.6-8. 7) Hemoglobin A1c 10/29/2022 Inhouse Hemoglobin A1c 5.3% Glucose Fingerstick 10/29/2022 Inhouse Glucose Fingerstick 105 Hemoglobin A1c 11/04/2021 Inhouse Hemoglobin A1c 5.0% Complete Abc With Diff 10/30/2021 [facility] WBC 7.5 K/MM3 (4.0-11 [...] 0) Lymph # 1.7 K/MM3 (0.8-3. 1) Bradley# 0.8 K/MM3 (0.4-1. 3) Eo # 0.3 K/MM3 (0.0-0. 4) Baso # 0.0 K/MM3 (0.0-0. 1) Abs. Imm Gran 0.1 K/MM3 Neut 62.4 % (44-76) Lymph 22.2 % (15-43) Monocyte 10.6 % High (4.5-10 .5) Eo 3.6 % (0-6) Baso 0.5 % (0-2) Imm Gran 0.7 % Comprehensive Metabolic Panl 10/30/2021 [facility] Glucose 120 mg/dL High [...] 80 ML/MIN/1.7 3M2 5 Lipid Panel 10/30/2021 [facility] Cholesterol, Total 163 mg/dL (<200) Triglyceride 91 mg/dL (<150) HDL Chol 81 mg/dL (>39) LDL Cholesterol, Calculated 64 mg/dL (0-130) Non HDL Cholesterol (Calc) 82 mg/dL (<160) PSA Screen 10/30/2021 [facility] PSA Screen 0.7 NG/ML (0-4) 6 TSH 10/30/2021 [facility] TSH 2.22 uIU/mL (0.4-4. 2) Urinalysis Complete 10/30/2021 [facility] Appear/Color YELLOW 7 SP. Rosebud 1.012 (1.002- 1.030) Urine PH 5.5 (5.0-8. [...]
== END 2025-01-10 12:54 | disposition home or self-care (01) ==
LOC: HO.XRAY 12:53
PROVIDERS: PCP Internal Medicine Endocrinology, Diabetes & Metabolism; Visit Provider Hospitalist
DX: J98.6 Disorders of diaphragm (principal); R06.09 Other forms of dyspnea
CPT/HCPCS: 76000

== ENCOUNTER → 2025-01-10 13:08 | Outpatient (BNV) | payer BC, SELFPAY | PROVIDERS: PCP Internal Medicine Endocrinology, Diabetes & Metabolism; Visit Provider Radiology Diagnostic Radiology | DX: J98.6 Disorders of diaphragm (principal); R06.00 Dyspnea, unspecified | CPT/HCPCS: 76000 ==